=== PATIENT | female | born 1950 | race Caucasian/White ===

== ENCOUNTER 2017-01-09 09:21 | Emergency (ER) | payer MEDICARE, OTHER ==
[~2017-01-09] VITALS: Ht 152.4 cm; Wt 54.0 kg
[~2017-01-09 09:21] MED LIST: METO10TA96 PO; OMEP20CA16 PO
[2017-01-09 09:31] VITALS: Ht 152.4 cm; Wt 54.0 kg
--- NOTE | 2017-01-09 10:18 | ERD ---
ER Documentation Chief Complaint Date/Time DATE: 01/09/17 TIME: 10:16 Chief Complaint Complains of back pain and shoulder and neck HPI Patient is a 66 year old female here with daughter who presents to the ED for evaluation of her pleural effusion. She is currently going through chemotherapy for stage 4 uterine cancer. She states that her oncologist sent her here after seeing a pleural effusion on her CT scan. She complains of cough, SOB, and posterior left rib pain x 2 weeks. Denies chest pain or difficulty breathing. Denies fever or chills. Denies headache or dizziness. Denies leg pain or swelling. She states the oncologist wants to continue with treatment once her pleural effusion is evaluated. ROS All systems reviewed and are negative except as per history of present illness. Medications Home Meds Active Scripts Azithromycin* (Zithromax*) 250 Mg Tablet, 250 MG PO .ZPACK DIRECTED, #6 TAB TAKE 500 MG (2 TABS) THE FIRST DAY THEN 250 MG (1 TAB) DAYS 2-5 Prov:YOKO JAY PA-C 01/09/17 Metoclopramide Hcl* (Metoclopramide Hcl*) 10 Mg Tablet, 10 MG PO Q6H Y for NAUSEA AND OR VOMITING, #30 TAB Prov:WALKER MCKINNON MD 04/29/16 Omeprazole* (Omeprazole*) 20 Mg Capsule.dr, 20 MG PO DAILY, #90 CAP Prov:WALKER MCKINNON MD 04/29/16 Allergies Allergies: Coded Allergies: No Known Allergy (Unverified , 04/10/16) PMhx/Soc History of Surgery: Yes (Abdominal hysterectomy with appendectomy 2016) Anesthesia Reaction: No Hx Neurological Disorder: No Hx Respiratory Disorders: No Hx Cardiac Disorders: No Hx Psychiatric Problems: No Hx Miscellaneous Medical Probl: Yes (uterine cancer) Hx Alcohol Use: No Hx Substance Use: No Hx Tobacco Use: No Smoking Status: Never smoker Physical Exam Vitals Vital Signs Date Time Temp Pulse Resp B/P Pulse Ox O2 Delivery O2 Flow Rate FiO2 01/09/17 09:31 98.3 97 20 122/57 100 Physical Exam GENERAL: Well-developed, well-nourished female. Appears in no acute distress. LUNG: Clear to auscultation bilaterally. No rhonchi, wheezing, rales or coarse breath sounds. HEART: Regular rate and rhythm. No murmurs, rubs or gallops. BACK: No midline tenderness. Extremities: Equal pulses bilaterally. No peripheral clubbing, cyanosis or edema. No unilateral leg swelling. NEUROLOGIC: Alert and oriented. Moving all four extremities. 5/5 strength in all extremities. Normal speech. Steady gait. SKIN: Normal color. Warm and dry. No rashes or lesions. Capillary refill < 2 seconds Procedures/MDM ER COURSE: I kept the patient and/or family informed of laboratory and diagnostic imaging results throughout the emergency room course. EKG, MONITORS, & DIAGNOSTIC IMAGING: [place] [id number] Radiology Main Line: [phone] DIAGNOSTIC IMAGING REPORT Patient: VALENTINO CUNNINGHAM : 1950 Age: 66 Sex: F MR #: [id number] DOS: 01/09/17 1012 Ordering MD: YOKO JAY PA-C Location: [facility] Room/Bed: PROCEDURE: XR Chest. CLINICAL INDICATION: Shortness of breath/cough TECHNIQUE: Chest PA. COMPARISON: 04/10/2016 FINDINGS: Right-sided Port-A-Cath. The mediastinal structures are unremarkable. There is calcification of the thoracic aorta (consistent with atherosclerosis). The heart is normal in size and configuration. The pulmonary vascularity is normal. There is left basilar subsegmental atelectasis / patchy consolidation. There is a small left pleural effusion. The osseous structures are unremarkable. IMPRESSION: Calcification of the thoracic aorta (consistent with atherosclerosis) Left basilar subsegmental atelectasis / patchy consolidation Small left pleural effusion RPTAT: HGDB .Milan Quiñones MD, MD Date Time Electronically viewed and signed by .Milan Quiñones MD, MD on 01/09/2017 10:49 .B/ CC: YOKO JAY PA-C MEDICAL DECISION MAKING: This is a 66-year-old female with a history of uterine cancer who presents with cough, shortness of breath and evaluation of her pleural effusion. Vital signs were reviewed. Patient is afebrile. Patient is not hypoxic. Patient is not toxic or ill-appearing. Temperature 98.3 with an O2 sat of 100. Pulse 97. Patient has a small left pleural effusion. I have consulted with Dr. Olguin who has reviewed her imaging studies and agrees with plan. X-ray is read by radiologist shows calcification of the thoracic aorta consistent with atherosclerosis, left basilar subsegmental atelectasis/patchy consolidation, small left pleural effusion. Low suspicion for PE, pneumothorax, ACS, epiglottitis, obstruction, TB, pertussis, meningitis, sepsis. DISCHARGE: At this time, patient is stable for discharge and outpatient management with no new complaints during the ER course. Patient was sent home with Zithromax and to follow-up with oncologist with results.. Patient will be discharged home with instructions to recheck for new or worsening symptoms such as fever, nausea , weakness, LOC and to follow up with primary care in the next 1-2 days. Patient was advised to return to the ER for any new or worsening symptoms. Plan was discussed and patient and/or family understands and agrees. Home instructions were given. Departure Diagnosis: Primary Impression: Uterine cancer Malignant neoplasm of uterus location: unspecified site of uterus Qualified Code: C55 - Malignant neoplasm of uterus, unspecified site Additional Impressions: Pneumonia Pneumonia type: due to unspecified organism Laterality: left Lung location : unspecified part of lung Qualified Code: J18.9 - Pneumonia of left lung due to infectious organism, unspecified part of lung Pleural effusion Condition: Stable YKOO JAY PA-C Jan 09, 2017 10:18
--- NOTE | 2017-01-09 10:50 | RADRPT ---
PROCEDURE: XR Chest. CLINICAL INDICATION: Shortness of breath/cough TECHNIQUE: Chest PA. COMPARISON: 04/10/2016 FINDINGS: Right-sided Port-A-Cath. The mediastinal structures are unremarkable. There is calcification of the thoracic aorta (consiste nt with atherosclerosis). The heart is normal in size and configuration. The pulmonary vascularity is normal. There is left basilar subsegmental atelectasis / patchy consolidation. There is a smal l left pleural effusion. The osseous structures are unremarkable. IMPRESSION: Calcification of the thoracic aorta (consistent with atherosclerosis) Left basilar subsegmental atelectasis / patchy consolidation Small left pleural effusion RPTAT: HGDB .Milan Quiñones MD, Date Time Electronically viewed and signed by .Milan Quiñones MD, on 01/09/2017 10:49 .B/
[2017-01-09] MEDS ORDERED: AZIT250T94 PO (11:02)
== END 2017-01-09 11:35 | disposition home or self-care (01) ==
LOC: FTE 09:21
DX: C55 Malignant neoplasm of uterus, part unspecified (principal); J18.9 Pneumonia, unspecified organism; J90 Pleural effusion, not elsewhere classified
CPT/HCPCS: 71010

== ENCOUNTER 2017-01-29 11:25 | Inpatient (IN) | payer MEDICARE, OTHER ==
[~2017-01-29] VITALS: Ht 152.4 cm; Wt 56.0 kg
[~2017-01-29 11:25] MED LIST changes: +AZIT250T94 PO
[2017-01-29 11:29] VITALS: Ht 152.4 cm; Wt 56.0 kg
[2017-01-29] MEDS ORDERED: IPRATROPIUM (NEB) 0.5 MG/2.5 ML AMP INH STA (11:51)
[2017-01-29] MEDS ORDERED: ALBUTEROL 0.5% (NEB) 2.5 MG/0.5 ML AMP INH STA (11:51)
[2017-01-29] MEDS ORDERED: OMEP20CA16 PO (11:54)
--- NOTE | 2017-01-29 12:03 | ERA ---
ER Documentation Chief Complaint Date/Time DATE: 01/29/17 TIME: 11:56 Chief Complaint had pna and s/s not going away and has cwp now HPI This is a very pleasant 66-year-old female with a known history of stage IV uterine carcinoma diagnosed in March 2016. The patient underwent a total abdominal hysterectomy May 022015. Her last dose of chemotherapy was October 2016 and the patient's network security engineer oncologist is Dr. Scott Bonner and Pascale Ferreira. The patient surgical oncologist is Dr. Marte. They are currently awaiting further instructions for her treatment as they have an appointment with Dr. Marte on February 04. The patient indicates that roughly 1 month prior to arrival she was seen and evaluated in the hospital and diagnosed with a pleural effusion and pneumonia. She was placed on antibiotics for 5 days. She indicated she took all of her medications as instructed. The patient presents to the emergency department today stating that her dyspnea has significantly worsened over the past month. She has been experiencing shortness of breath for the past 4 days that exacerbated with walking. She has had no fevers no shaking or chills. She denies a productive cough. She has had generalized myalgias. She denies any swelling of her lower extremities. The patient denies any hemoptysis hematemesis or melanotic stools. She is no chest pain or pressure that radiates to the neck arm back or jaw she denies any abdominal pain. She is complaining of significant amount of pain over her left scapula for the past month which she states is a dull achy pain. ROS All systems reviewed and are negative except as per history of present illness. Medications Home Meds Reported Medications Omeprazole* (Omeprazole*) 20 Mg Capsule., 20 MG PO DAILY, #30 CAP 01/29/17 Discontinued Scripts Azithromycin* (Zithromax*) 250 Mg Tablet, 250 MG PO .CHRISTIANNE DIRECTED, #6 TAB TAKE 500 MG (2 TABS) THE FIRST DAY THEN 250 MG (1 TAB) DAYS 2-5 Prov:YOKO JAY PA-C 01/09/17 Metoclopramide Hcl* (Metoclopramide Hcl*) 10 Mg Tablet, 10 MG PO Q6H Y for NAUSEA AND OR VOMITING, #30 TAB Prov:WALKER MCKINNON MD 04/29/16 Omeprazole* (Omeprazole*) 20 Mg Capsule.dr, 20 MG PO DAILY, #90 CAP Prov:WALKER MCKINNON MD 04/29/16 Allergies Allergies: Coded Allergies: No Known Allergy (Unverified , 01/29/17) PMhx/Soc History of Surgery: Yes (Abdominal hysterectomy with appendectomy 2016) Anesthesia Reaction: No Hx Neurological Disorder: No Hx Respiratory Disorders: No Hx Cardiac Disorders: No Hx Psychiatric Problems: No Hx Miscellaneous Medical Probl: Yes (uterine cancer) Hx Alcohol Use: No Hx Substance Use: No Hx Tobacco Use: No Physical Exam Vitals Vital Signs Date Time Temp Pulse Resp B/P Pulse Ox O2 Delivery O2 Flow Rate FiO2 01/29/17 12:19 2.0 01/29/17 12:19 78 20 97 Nasal Cannula 2.0 01/29/17 11:29 97.9 109 22 118/59 100 Physical Exam Constitutional:Well-developed. Well-nourished. Appeared to be in mild respiratory distress HEENT:Normocephalic. Atraumatic.Pupils were equal round reactive to light. Moist mucous membranes.No tonsillar exudates. Neck: No nuchal rigidity. No lymphadenopathy. No posterior cervical spine tenderness or step-offs. Respiratory: Not using accessory muscles of respiration. No rhonchi or wheezing. Decreased breath sounds heard throughout the left upper and lower lung field. Cardiovascular: Regular rate regular rhythm.No murmurs. No rubs were appreciated.S1, S2 normal. Distal pulses are palpable 2+ bilaterally. GI: Abdomen was soft. Nontender. Non Distended. No pulsatile abdominal masses or bruits. No rebound. No guarding. Bowel sounds were present and normal. Muscle skeletal: Full range of motion of both the upper and lower extremities bilaterally.Normal muscle tone.No assymetrical calf tenderness or swelling. Skin: No petechia, no purpura. No lesions on the palms or the soles of the feet. No maculopapular rash. NEURO: Patient was alert, awake, orientated x3.No facial droop. Gait observed and normal with no ataxia.Speech had regular rate and rhythm. No focal neurological deficits. Result Diagram: 01/29/17 1210 01/29/17 1210 Results 24 hrs Laboratory Tests Test 01/29/17 12:10 Activated Partial Thromboplast Time 38.6Sec Alanine Aminotransferase (ALT/SGPT) 27IU/L Albumin 3.6g/dl Albumin/Globulin Ratio 0.83 Alkaline Phosphatase 161IU/L Anion Gap 18 Aspartate Amino Transf (AST/SGOT) 17IU/L B-Type Natriuretic Peptide 240PG/ML Basophils # 0.010^3/ul Basophils % 0.3% Blood Urea Nitrogen 13mg/dl Calcium Level 9.3mg/dl Carbon Dioxide Level 25mmol/L Chloride Level 105mmol/L Creatine Kinase 29IU/L Creatine Kinase Index 0.8 Creatinine 0.66mg/dl Creatinine Kinase MB (Mass) < 0.22ng/ml Direct Bilirubin 0.00mg/dl Eosinophils # 0.110^3/ul Eosinophils % 0.8% Globulin 4.30g/dl Glucose Level 91mg/dl Hematocrit 31.5% Hemoglobin 10.5g/dl INR International Normalized Ratio 1.05 Indirect Bilirubin 0.2mg/dl Lactic Acid Level 0.7mmol/L Lymphocytes # 1.510^3/ul Lymphocytes % 24.3% Mean Corpuscular Hemoglobin 27.9pg Mean Corpuscular Hemoglobin Concent 33.3g/dl Mean Corpuscular Volume 83.6fl Mean Platelet Volume 9.6fl Monocytes # 0.410^3/ul Monocytes % 5.8% Neutrophils # 4.410^3/ul Neutrophils % 68.5% Nucleated Red Blood Cells # 0.010^3/ul Nucleated Red Blood Cells % 0.0/100WBC Platelet Count 04026^3/UL Potassium Level 4.1mmol/L Prothrombin Time 13.7Sec Prothrombin Time Ratio 1.1 Red Blood Count 3.7710^6/ul Red Cell Distribution Width 14.1% Sodium Level 144mmol/L Total Bilirubin 0.2mg/dl Total Protein 7.9g/dl Troponin I < 0.012ng/ml White Blood Count 6.410^3/ul Current Medications Medications (Trade) Dose Ordered Sig/Michael Route PRN Reason Start Time Stop Time Status Last Admin Dose Admin Albuterol (Proventil 0.5% (Neb)) 10 mg ONCE STAT INH 01/29/17 11:51 01/29/17 11:56 DC 01/29/17 12:18 Ipratropium [place] 1 mg 1 mg ONCE STAT INH 01/29/17 11:51 01/29/17 11:56 DC 01/29/17 12:18 Vancomycin HCl 250 ml @ 125 mls/hr ONCE ONCE IVPB 01/29/17 13:30 01/29/17 15:29 Piperacillin Sod/ Tazobactam Sod (Zosyn 3.375gm/ 100 ml (Pmx)) 100 ml @ 200 mls/hr ONCE STAT IVPB 01/29/17 13:10 01/29/17 13:39 Procedures/MDM The patient presented to the emergency department with shortness of breath. My differential diagnosis included but was not limited to upper airway obstruction , CHF, pulmonary embolism, cardiac ischemia, pneumonia, pneumothorax, anemia, drug overdose, pulmonary edema, COPD or asthma. Decreased breath sounds were heard throughout the left upper and lower lung field and the patient immediately was placed on monitoring engineer continuous pulse oximetry and the patient's right-sided Port-A-Cath was accessed by nursing staff. The patient was given nebulizer treatments of albuterol and Atrovent. I obtained 2 sets of blood cultures and urine culture as again I was concerned with the possibility of a pleural effusion from physical exam findings. After reviewing the chest radiograph at bedside the patient did have a large complete opacification of the left chest with concerning for pleural effusion. Given that I cannot rule out an exudate or transudate I did feel is necessary to administer antibiotics given her history of immunocompromisation. The patient received IV vancomycin and IV Zosyn. The patient was not complaining of any respiratory distress when she was placed on 2 L of nasal cannula satting at 100% 12 Lead EKG tracing ordered and reviewed by myself showed to rule out atypical myocardial infarction: Normal sinus rhythm of 89 bpm and no arrhythmia. LA interval normal. QRS duration normal. No ST segment elevation No ST segment depression. No changes consistent with acute ischemia. I did feel is necessary to obtain a CT scan of the patient's chest to rule out metastasis or a pulmonary embolism. The patient will be admitted in serious condition to the telemetry service with an anticipated stay of greater than 2 midnights to the hospitalist Dr. Quiroz. Departure Diagnosis: Primary Impression: Pleural effusion Condition: Serious EPIFANIO BENSON Jan 29, 2017 12:03
[2017-01-29 12:26] LABS: ADD SCAN DIFF NO
[2017-01-29 12:40] LABS: BASOPHILS % 0.3 % (0.0-2.0); EOSINOPHILS # 0.1 10^3/ul (0.0-0.5); EOSINOPHILS % 0.8 % (0.0-7.0); HEMATOCRIT 31.5 % (37.0-47.0); HEMOGLOBIN 10.5 g/dl (12.0-16.0); LYMPHOCYTES # 1.5 10^3/ul (0.8-2.9); LYMPHOCYTES % 24.3 % (15.0-51.0); MEAN CORPUSCULAR HEMOGLOBIN 27.9 pg (29.0-33.0); MEAN CORPUSCULAR HGB CONC 33.3 g/dl (32.0-37.0); MEAN CORPUSCULAR VOLUME 83.6 fl (82.0-101.0); MEAN PLATELET VOLUME 9.6 fl (7.4-10.4); MONOCYTE # 0.4 10^3/ul (0.3-0.9); MONOCYTES % 5.8 % (0.0-11.0); NEUTROPHIL # 4.4 10^3/ul (1.6-7.5); NEUTROPHILS % 68.5 % (39.0-77.0); PLATELET COUNT 288 10^3/UL (140-415); RED BLOOD COUNT 3.77 10^6/ul (4.20-5.40); RED CELL DISTRIBUTION WIDTH 14.1 % (11.5-14.5); WHITE BLOOD COUNT 6.4 10^3/ul (4.8-10.8)
[2017-01-29 12:42] LABS: ALBUMIN 3.6 g/dl (3.3-4.9); CHLORIDE 105 mmol/L (97-110); POTASSIUM 4.1 mmol/L (3.5-5.1); SODIUM 144 mmol/L (135-144)
[2017-01-29 12:43] LABS: INR 1.05; PARTIAL THROMBOPLASTIN TIME 38.6 Sec (25.0-35.0); PROTIME 13.7 Sec (12.2-14.2); PT RATIO 1.1
[2017-01-29 12:44] LABS: CREATININE 0.66 mg/dl (0.44-1.00)
[2017-01-29 12:45] LABS: ALANINE AMINOTRANSFERASE 27 IU/L (13-69); ALBUMIN/GLOBULIN RATIO 0.83; ALKALINE PHOSPHATASE 161 IU/L (42-121); ASPARTATE AMINO TRANSFERASE 17 IU/L (15-46); BILIRUBIN,INDIRECT 0.2 mg/dl (0-1.1); BILIRUBIN,TOTAL 0.2 mg/dl (0.2-1.3); BLOOD UREA NITROGEN 13 mg/dl (7-20); CALCIUM 9.3 mg/dl (8.4-10.2); CARBON DIOXIDE 25 mmol/L (21-31); CREATINE KINASE 29 IU/L (23-200); GLUCOSE 91 mg/dl (70-220); TOTAL PROTEIN 7.9 g/dl (6.1-8.1)
[2017-01-29 12:46] LABS: ANION GAP 18 (8-16)
[2017-01-29 12:56] LABS: B-TYPE NATRIURETIC PEPTIDE 240 PG/ML (0-125)
[2017-01-29 13:01] LABS: CK-MB < 0.22 ng/ml (0.0-2.4); TROPONIN-I < 0.012 ng/ml (0.00-0.12)
[2017-01-29] MEDS ORDERED: PIPER-TAZO 3.375 GM IV (PMX) 100 ML IVPB STA (13:10)
--- NOTE | 2017-01-29 13:20 | RADRPT ---
PROCEDURE: Chest Radiograph. CLINICAL INDICATION: Shortness of breath TECHNIQUE: Single frontal chest radiograph. COMPARISON: Chest radiograph 01/09/2017 FINDINGS: A right chest wall port infusion catheter remains in place. Heart size is poorly evaluated. There is near complete whiteout of the left hemithorax, new compared to 01/09/2017 There is apparent medi astinal shift to the right suggesting this is a large pleural effusion rather than collapse. Right l denisse is clear. The bones are intact IMPRESSION: 1. Near complete whiteout of the left hemithorax with mediastinal shift to the right suggesting lar ge pleural effusion. 2. Right chest wall port infusion catheter. RPTAT: KK .Sav Baires MD, MD Date Time Electronically viewed and signed by .Sav Baires MD, on 01/29/2017 13:20 .B/
[2017-01-29] MEDS ORDERED: ONDANSETRON 4 MG INJ IV PRN ×2 (13:30→15:30)
[2017-01-29] MEDS ORDERED: ACETAMINOPHEN 325 MG TAB PO PRN (13:30)
[2017-01-29] MEDS ORDERED: VANCOMYCIN 1 GM (PMX) 250 ML IVPB ONE (13:30)
[2017-01-29] MEDS ORDERED: SOD CHLORIDE 0.9% 100 ML ONE (14:30)
[2017-01-29] MEDS ORDERED: IODIXANOL LOCM 100 ML BTL ONE (14:30)
[2017-01-29] MEDS ORDERED: IODIXANOL LOCM 50 ML BTL ONE (14:30)
[2017-01-29] MEDS ORDERED: DOCUSATE SODIUM 100 MG CAP PO PRN (15:30)
[2017-01-29] MEDS ORDERED: NACL 0.9% 3 ML SYG IV SCH (15:30)
[2017-01-29] MEDS ORDERED: morphine 2 MG INJ IV PRN (15:30)
[2017-01-29] MEDS ORDERED: ZOLPIDEM 5 MG TAB PO PRN (15:30)
--- NOTE | 2017-01-29 15:45 | RADRPT ---
PROCEDURE: CT ANGIOGRAPHY CHEST CLINICAL INDICATION: Chest pain TECHNIQUE: Volumetrically acquired images of the thorax obtained with intravenous contrast were re formatted in the axial, coronal, and sagittal planes. CTDI = 6.6 mGy; DLP = 235 mGy-cm. 115 cc of V isipaque was administered. 3D MIP multiplanar reconstructions were performed and evaluated on the w orkstation. One or more of the following dose reduction technique were used: Automatic exposure cont rol, adjustment of the mA and/or kV according to patient size, and use of iterative reconstruction t echnique. COMPARISON: 01/29/2017 chest x-ray. FINDINGS: LOWER NECK AND CHEST WALL: There is a right chest wall port catheter with the tip in the superior ve na cava. AIRWAYS: The trachea and large airways are normal. LUNGS: Near entire atelectasis of the left lung. Only portions of the left lung apex is aerated. PLEURA: Large loculated effusion on the left with associated atelectasis of nearly in the entire lef t lung. LYMPH NODES: No significant axillary, hilar, or mediastinal lymphadenopathy by CT size criteria. CARDIAC: The heart size is normal. No pericardial effusion. VASCULAR: Technically adequate opacification of the pulmonary arteries; no fill defects are seen. T he aorta and main pulmonary artery are normal in caliber. Aortic and coronary atherosclerotic calci fications are present. OSSEOUS: No suspicious osseous lesions. Scattered degenerative changes of the thoracic spine is vis ualized. Limited evaluation of the upper abdomen demonstrates a prior left nephrectomy. IMPRESSION: 1. No pulmonary embolism. 2. Large loculated left pleural effusion with associated atelectasis causing mediastinal shift to th e right. There is an near total atelectasis of the entire left lung with minimal amount of aerated lung seen at the left lung apex. 3. Status post left nephrectomy. RPTAT:PP .Wayne Alejandre MD, Date Time Electronically viewed and signed by .Wayne Alejandre MD, on 01/29/2017 15:40 .V/
--- NOTE | 2017-01-29 15:57 | HP ---
DATE OF ADMISSION: 01/29/2017 ADDENDUM PHYSICAL EXAMINATION: CHEST: Clear to auscultation on the right. Decreased breath sounds on the left. ABDOMEN: Nondistended, nontender, soft. EXTREMITIES: No clubbing, cyanosis, or edema. LABORATORY DATA: White count is 6.4, hemoglobin is 10.5, platelets are 288. Chemistry was within n ormal limits. DIAGNOSTIC DATA: Chest x-ray shows near complete whiteout of the left hemithorax with mediastinal s hift to the right suggesting a large pleural effusion, right chest wall port infusion catheter. ASSESSMENT AND PLAN: 1. Acute respiratory distress secondary to left hemithorax opacification, likely secondary to malig nant effusion. The patient does have a history of metastatic uterine cancer. We will obtain a thor acentesis, send fluid for analysis. We will get a pulmonology consultation. 2. History of stage IV cervical cancer with known peritoneal carcinomatosis. We will consult Dr. Clinton marcus. 3. Normocytic anemia, likely anemia of chronic disease from underlying malignancy. 4. Prophylaxis: Sequential compression devices. Dictated By: CHRISTINE HYDE MD BS/NTS Conf#: [id number] DID#: [id number]
[2017-01-29 16:55] VITALS: BP 116/56; PULSE 105; RESP 18
[2017-01-29] MEDS: ACETAMINOPHEN 325 MG TAB PO PRN (17:36)
[2017-01-29 20:05] VITALS: PULSE 95
[2017-01-29 20:33] VITALS: BP 107/62; RESP 16
[2017-01-30] VITALS (12 sets, daily range): BP systolic 105–126; BP diastolic 55–72; PULSE 83–92; RESP 16–20
[2017-01-30] MEDS: ACETAMINOPHEN 325 MG TAB PO PRN ×3 (04:22→19:55)
[2017-01-30 06:40] LABS: ADD SCAN DIFF NO
[2017-01-30 06:51] LABS: BASOPHILS % 0.2 % (0.0-2.0); EOSINOPHILS # 0.1 10^3/ul (0.0-0.5); EOSINOPHILS % 1.2 % (0.0-7.0); HEMATOCRIT 29.7 % (37.0-47.0); HEMOGLOBIN 9.9 g/dl (12.0-16.0); LYMPHOCYTES # 1.2 10^3/ul (0.8-2.9); LYMPHOCYTES % 20.1 % (15.0-51.0); MEAN CORPUSCULAR HEMOGLOBIN 28.1 pg (29.0-33.0); MEAN CORPUSCULAR HGB CONC 33.3 g/dl (32.0-37.0); MEAN CORPUSCULAR VOLUME 84.4 fl (82.0-101.0); MEAN PLATELET VOLUME 9.6 fl (7.4-10.4); MONOCYTE # 0.4 10^3/ul (0.3-0.9); MONOCYTES % 6.5 % (0.0-11.0); NEUTROPHIL # 4.1 10^3/ul (1.6-7.5); NEUTROPHILS % 71.8 % (39.0-77.0); PLATELET COUNT 269 10^3/UL (140-415); RED BLOOD COUNT 3.52 10^6/ul (4.20-5.40); RED CELL DISTRIBUTION WIDTH 14.1 % (11.5-14.5); WHITE BLOOD COUNT 5.7 10^3/ul (4.8-10.8)
[2017-01-30 07:06] LABS: POTASSIUM 4.3 mmol/L (3.5-5.1)
--- NOTE | 2017-01-30 07:08 | HP ---
DATE OF ADMISSION: 01/29/2017 CHIEF COMPLAINT: Shortness of breath. HOSPITAL COURSE: The patient is a 66-year-old female with a history of stage IV cervical cancer sta tus post total abdominal hysterectomy as well as bilateral salpingo-oophorectomy. Patient is also s tatus post chemotherapy with Dr. Bonner. The patient reportedly had a CT abdomen approximately a mo nth and a half ago that showed stable findings, but did show a mild pleural effusion and since then, patient has been having progressively worsening shortness of breath. She presents to the ER today where she had a chest x-ray that showed near complete opacification of the left hemithorax with medi astinal shift to the right, suggesting large pleural effusion. Patient has no other complaints at t his time. PAST MEDICAL HISTORY: As per HPI. PAST SURGICAL HISTORY: As per HPI with a total abdominal hysterectomy and bilateral salpingo-oophor ectomy. HOME MEDICATIONS: Omeprazole. ALLERGIES: NO KNOWN DRUG ALLERGIES. FAMILY HISTORY: Extensive history of cancer in the family with mother had likely a cancer, also sisters with cancers. SOCIAL HISTORY: Denies alcohol, tobacco or drug use. REVIEW OF SYSTEMS: A 12-point review of systems is negative except for that listed in HPI and heada leland. PHYSICAL EXAMINATION VITAL SIGNS: Temperature is 97.9, pulse 109, respiration is 20, blood pressure 112/74, saturation 1 00% on 2 liters. GENERAL: No acute distress. Alert and oriented. HEENT: Normocephalic, atraumatic. DICTATION ENDS HERE..... Dictated By: CHRISTINE LUNA/KOURTNEY Conf#: [id number] DID#: [id number]
[2017-01-30 07:09] LABS: CREATININE 0.58 mg/dl (0.44-1.00)
[2017-01-30 07:10] LABS: CALCIUM 8.7 mg/dl (8.4-10.2); PHOSPHORUS 3.8 mg/dl (2.5-4.9)
--- NOTE | 2017-01-30 13:35 | PN ---
DATE: 01/30/2017 TYPE OF CONSULTATION: Pulmonary. REASON FOR CONSULTATION: Shortness of breath. Thank you, Dr. Freed, for this consultation: HISTORY OF PRESENT ILLNESS: This is an unfortunate 66-year-old lady with a history of stage IV cervi rafa cancer with peritoneal carcinomatosis, who presented with significant shortness of breath, ortho pnea and PND and was found to have complete opacification of the left hemithorax, consistent with pl eural effusion. Denies any fever or chills. No chest pain or palpitations. No orthopnea or PND. She has a history of cervical cancer, also bilateral salpingo-oophorectomy, status post chemotherapy . ALLERGIES: NO KNOWN ALLERGIES. SOCIAL HISTORY: Nonsmoker, no alcohol, no history of drug use. FAMILY HISTORY: Noncontributory. REVIEW OF SYSTEMS: A 12-point review of systems was negative, other than that mentioned above. PHYSICAL EXAMINATION: GENERAL: Well-nourished, well-developed lady, comfortable at rest, in no acute distress. VITAL SIGNS: Currently afebrile, pulse is 90, blood pressure 108/55, O2 saturation 96% on 3 L nasal cannula. NECK: Supple. No JVD or lymphadenopathy. CARDIAC EXAM: S1, S2. No added sounds or murmurs. CHEST: Diminished air entry, left lung. ABDOMEN: Soft, nontender. No guarding or rebound. EXTREMITIES: No cyanosis, clubbing, edema. NEUROLOGIC: Grossly intact. No focal deficits. LABORATORY: White count 5.7, hemoglobin 9.9, platelets of 269, BUN 9, creatinine 0.58. INR 1.05. IMPRESSION AND PLAN: 1. Cervical carcinoma stage IV. 2. Left pleural effusion, likely malignant in origin. 3. Hypoxemia secondary to above. Patient will require: 1. Thoracentesis. 2. Pleural fluid studies. 3. Likely PleurX catheter, given probable malignant origin. Dictated By: JEROME MOODY/KOURTNEY Conf#: [id number] DID#: [id number]
--- NOTE | 2017-01-30 15:10 | PN ---
Date/Time of Note Date/Time of Note DATE: 01/30/17 TIME: 15:05 Assessment/Plan VTE Prophylaxis VTE Prophylaxis Intervention: SCD's Lines/Catheters IV [facility] A CATH Urinary Cath still in place: No Assessment/Plan Chief Complaint/Hosp Course 1. Acute respiratory distress likely 2/2 malignant effusion -US Thoracentesis, fluid analysis - Pulmonology consultation appreciated 2. History of stage IV cervical cancer with known peritoneal carcinomatosis -Onc consult 3. Normocytic anemia, likely anemia of chronic disease from underlying malignancy. PPx-Sequential compression devices Problems: Subjective 24 Hr Interval Summary Respiratory: shortness of breath Exam/Review of Systems Vital Signs Vitals Vital Signs Date Time Temp Pulse Resp B/P Pulse Ox O2 Delivery O2 Flow Rate FiO2 01/30/17 13:05 92 01/30/17 11:50 98.8 20 108/55 95 01/30/17 07:33 Nasal Cannula 3.0 Exam Constitutional: alert, oriented Respiratory: diminished breath sounds (on the L ) Cardiovascular: regular rate and rhythm Gastrointestinal: soft, No distended Musculoskeletal: nl extremities to inspection Results Result Diagram: 01/30/17 0547 01/30/17 0547 Results 24 hrs Laboratory Tests Test 01/29/17 15:50 01/30/17 05:47 Lactic Acid Level 1.3 Anion Gap 14 Basophils # 0.0 Basophils % 0.2 Blood Urea Nitrogen 9 Calcium Level 8.7 Carbon Dioxide Level 27 Chloride Level 104 Creatinine 0.58 Eosinophils # 0.1 Eosinophils % 1.2 Glucose Level 95 Hematocrit 29.7 L Hemoglobin 9.9 L Lymphocytes # 1.2 Lymphocytes % 20.1 Magnesium Level 2.0 Mean Corpuscular Hemoglobin 28.1 L Mean Corpuscular Hemoglobin Concent 33.3 Mean Corpuscular Volume 84.4 Mean Platelet Volume 9.6 Monocytes # 0.4 Monocytes % 6.5 Neutrophils # 4.1 Neutrophils % 71.8 Nucleated Red Blood Cells # 0.0 Nucleated Red Blood Cells % 0.0 Phosphorus Level 3.8 Platelet Count 269 Potassium Level 4.3 Red Blood Count 3.52 L Red Cell Distribution Width 14.1 Sodium Level 141 White Blood Count 5.7 Medications Medications Current Medications Ondansetron HCl (Zofran Inj) 4 mg Q6H PRN IV NAUSEA AND/OR VOMITING; Start 01/29 at 15:30 Acetaminophen (Tylenol Tab) 650 mg Q6H PRN PO PAIN LEVEL 1-3 OR FEVER Last administered on 01/30/17 13:48; Admin Dose 650 MG; Start 01/29/17 at 15:30 Acetaminophen/ Hydrocodone Bitart ([place] (5/325)) 1 tab Q6H PRN PO MODERATE PAIN LEVEL 4-6; Start 01/29/17 at 15:30 Morphine Sulfate (morphine) 2 mg Q4H PRN IV SEVERE PAIN LEVEL 7-10; Start at 15:30 Docusate Sodium (Colace) 100 mg Q12H PRN PO CONSTIPATION; Start 01/29/17 at 15: 30 Zolpidem Tartrate (Ambien) 5 mg QHS PRN PO SLEEP; Start 01/29/17 at 15:30 CHRISTINE HYDE Jan 30, 2017 15:10
--- NOTE | 2017-01-30 16:06 | CONS ---
Date/Time of Note Date/Time of Note DATE: 01/30/17 TIME: 16:05 Assessment/Plan Assessment/Plan Chief Complaint/Hosp Course The patient is a 66 year old female who is a patient of Dr. Vin Marte and Dr. 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 She has not seen Dr. Bonner for 3 months and was lost to follow-up. - Agree with thoracentesis and likely pleurX catheter placement given probable malignant origin. - Patient will need to follow-up with Dr. Bonner as an outpatient for restaging and treatment. Can obtain repeat CT abdomen/pelvis once stabilized from respiratory standpoint. - Given extensive family history of ovarian and uterine cancer in her mother at age 39, sister at age 34, niece who apparently tested positive for a genetic mutation, would recommend genetic testing Problems: Consultation Date/Type/Reason Admit Date/Time Jan 29, 2017 at 13:19 Hx of Present Illness The patient is a 66 year old female who is a patient of Dr. Vin Marte and Dr. 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 She has not seen Dr. Bonner for 3 months and was lost to follow-up. She was admitted for shortness of breath for the past week and found to have a large loculated left pleural effusion with associated atelectasis causing mediastinal shift to the right. There is an near total atelectasis of the entire left lung with minimal amount of aerated lung seen at the left lung apex. She is planned to have a thoracentesis and likely pleurX catheter placement given probable malignant origin. Respiratory: shortness of breath Past Medical History Per HPI Past Surgical History GISSEL/BSO Family History Significant Family History: cancer (extensive family history of ovarian and uterine cancer in her mother at age 39, sister at age 34, niece who apparently tested positive for a genetic mutation) Social History Smoking Status: Never smoker Exam/Review of Systems Vital Signs Vitals Vital Signs Date Time Temp Pulse Resp B/P Pulse Ox O2 Delivery O2 Flow Rate FiO2 01/30/17 15:56 98.6 90 18 106/59 99 01/30/17 07:33 Nasal Cannula 3.0 Exam Constitutional: alert, distress (accessory muscle use), oriented Head: normocephalic Eyes: nl conjunctiva Neck: supple Respiratory: diminished breath sounds (diminished breath sounds on left) Cardiovascular: regular rate and rhythm Gastrointestinal: non-tender, soft Musculoskeletal: nl extremities to inspection Neurological: [employer] II-XII intact Results Result Diagram: 01/30/17 0547 01/30/17 0547 Results 24 hrs Laboratory Tests Test 01/30/17 05:47 Anion Gap 14 Basophils # 0.0 Basophils % 0.2 Blood Urea Nitrogen 9 Calcium Level 8.7 Carbon Dioxide Level 27 Chloride Level 104 Creatinine 0.58 Eosinophils # 0.1 Eosinophils % 1.2 Glucose Level 95 Hematocrit 29.7 L Hemoglobin 9.9 L Lymphocytes # 1.2 Lymphocytes % 20.1 Magnesium Level 2.0 Mean Corpuscular Hemoglobin 28.1 L Mean Corpuscular Hemoglobin Concent 33.3 Mean Corpuscular Volume 84.4 Mean Platelet Volume 9.6 Monocytes # 0.4 Monocytes % 6.5 Neutrophils # 4.1 Neutrophils % 71.8 Nucleated Red Blood Cells # 0.0 Nucleated Red Blood Cells % 0.0 Phosphorus Level 3.8 Platelet Count 269 Potassium Level 4.3 Red Blood Count 3.52 L Red Cell Distribution Width 14.1 Sodium Level 141 White Blood Count 5.7 Medications Medications Current Medications Ondansetron HCl (Zofran Inj) 4 mg Q6H PRN IV NAUSEA AND/OR VOMITING; Start 01/29 at 15:30 Acetaminophen (Tylenol Tab) 650 mg Q6H PRN PO PAIN LEVEL 1-3 OR FEVER Last administered on 01/30/17t 13:48; Admin Dose 650 MG; Start 01/29/17 at 15:30 Acetaminophen/ Hydrocodone Bitart ([place] (5/325)) 1 tab Q6H PRN PO MODERATE PAIN LEVEL 4-6; Start 01/29/17 at 15:30 Morphine Sulfate (morphine) 2 mg Q4H PRN IV SEVERE PAIN LEVEL 7-10; Start at 15:30 Docusate Sodium (Colace) 100 mg Q12H PRN PO CONSTIPATION; Start 01/29/17 at 15: 30 Zolpidem Tartrate (Ambien) 5 mg QHS PRN PO SLEEP; Start 01/29/17 at 15:30 TONAVNEET MD Jan 30, 2017 16:06
[2017-01-31] VITALS (12 sets, daily range): BP systolic 106–115; BP diastolic 52–57; PULSE 79–112; RESP 16–19
[2017-01-31] MEDS: ACETAMINOPHEN 325 MG TAB PO PRN (04:15)
[2017-01-31] MEDS ORDERED: LIDOCAINE 1% (MPF) 5 ML VIAL ONE (10:46)
--- NOTE | 2017-01-31 11:13 | PN ---
DATE: 01/31/2017 SUBJECTIVE: Patient Stephen is stable this morning, having repeat procedure. OBJECTIVE: VITAL SIGNS: Temperature 98, pulse 90, blood pressure 108/56, O2 saturation 98% on 2 L nasal cannul a. NECK: Supple, no JVD or lymphadenopathy. CARDIAC: S1, S2, no added sounds or murmurs. CHEST: Diminished air entry bilaterally. ABDOMEN: Soft, nontender. No guarding or rebound. EXTREMITIES: No cyanosis, clubbing, edema. NEUROLOGIC: Grossly intact. No focal deficits. LABORATORY DATA: Pending at time of this dictation. IMPRESSION AND PLAN: 1. Stage IV uterine cancer status post total abdominal hysterectomy and bilateral salpingo-oophorec nghia with new onset left pleural effusion, status post thoracentesis. We will await pleural fluid s tudies. If there is evidence of reaccumulation of pleural fluid, patient will require PleurX cathet er placement. 2. Continue hematology/oncology recommendations. 3. Deep venous thrombosis and gastrointestinal prophylaxis. Dictated By: JEROME MOODY/KOURTNEY Conf#: [id number] DID#: [id number]
--- NOTE | 2017-01-31 12:29 | RADRPT ---
PROCEDURE: XR Chest. CLINICAL INDICATION: Post thoracentesis. TECHNIQUE: An AP view of the chest was obtained COMPARISON: Chest x-ray dated 01/29/2017 FINDINGS: There is a right chest Port-A-Cath with tip in the mid SVC. There has been interval left-sided thoracentesis with improvement in degree of left pleural fluid, w hich remains large. No pneumothorax is seen. The cardiomediastinal silhouette is partially obscured . Demonstrate senescent changes. IMPRESSION: 1. Interval left thoracentesis with improvement in degree of left pleural effusion, which remains l arge. No pneumothorax is seen. 2. Right chest Port-A-Cath with tip in the mid SVC. RPTAT: HH .Rayna Nicholson MD, Date Time Electronically viewed and signed by .Rayna Nicholson MD, on 01/31/2017 12:28 .G/
[2017-01-31 12:54] LABS: FLUID TYPE THORACENTESIS FLUID
[2017-01-31 12:59] LABS: FLUID TOTAL PROTEIN 5.1 g/dl
[2017-01-31 13:11] LABS: FLUID APPEARANCE CLOUDY; FLUID TYPE PLEURAL; FLUID WBC'S 140 /cmm
[2017-01-31 14:26] LABS: FLUID EOSINOPHIL 4 %; FLUID LYMPHOCYTES 71 %; FLUID MONOCYTES 21 %; FLUID NEUTROPHILS 4 %
--- NOTE | 2017-01-31 14:35 | RADRPT ---
PROCEDURE: US guided left thoracentesis. CLINICAL INDICATION: Shortness of breath. Left pleural effusion. TECHNIQUE: Prior to the procedure, informed consent was obtained. The risks, benefits, and alternatives were e xplained to the patient or the patient's family, including but not limited to bleeding, infection, p ain, visceral or vascular damage, shock, pneumothorax, chest tube placement, air embolism, and . The patient or the patient's family understood the risks and the alternatives and wished to proce ed with the study. Informed written consent was obtained. A procedural pause was performed. The patient's name, date of , and procedure to be performed were verified. Ultrasound of the left hemithorax was performed in the axial and sagittal planes. A left pleural eff usion is noted. Utilizing ultrasound guidance, optimal location for entry to the pleural cavity was ascertained. The overlying skin was prepped and draped in the usual sterile fashion. Approximately 10 ml of 1% Xylocaine was injected locally for pain control. Using ultrasound guidance, a 5-Uzbek Yueh catheter was introduced into the left pleural space without difficulty. Fluid was aspirated. COMPARISON: None. FINDINGS: Initial ultrasound demonstrates fluid in the left pleural space. Approximately 1.0 liters of serous fluid was aspirated and sent to the laboratory. IMPRESSION: 1. Satisfactory ultrasound-guided left thoracentesis. RPTAT: QQ .Dominic Wilson MD, Date Time Electronically viewed and signed by .Dominic Wilson MD, on 01/31/2017 14:34 .R/
--- NOTE | 2017-01-31 14:45 | PDOCDIS ---
Discharge Instructions CONDITION Patient Condition: Good HOME CARE INSTRUCTIONS: Diet Instructions: Regular ACTIVITY: Activity Restrictions: No Restrictions FOLLOW UP/APPOINTMENTS Appointments F/U WITH YOUR ONCOLOGIST IN 1-2 WEEKS CHRISTINE HYDE Jan 31, 2017 14:45
[2017-01-31] MEDS ORDERED: BARIUM SULF 2% 450 ML BTL (BERRY SMOOTHIE) PO ONE (15:30)
--- NOTE | 2017-01-31 16:33 | PN ---
Date/Time of Note Date/Time of Note DATE: 01/31/17 TIME: 16:32 Assessment/Plan VTE Prophylaxis VTE Prophylaxis Intervention: SCD's Lines/Catheters IV [facility]from [facility] SANDIP CAHTH Urinary Cath still in place: No Assessment/Plan Chief Complaint/Hosp Course 1. Acute respiratory distress likely 2/2 malignant effusion -s/p US Thoracentesis, fluid analysis - Pulmonology consultation appreciated -F/U on CT Chest 2. History of stage IV cervical cancer with known peritoneal carcinomatosis -Onc consult appreciated 3. Normocytic anemia, likely anemia of chronic disease from underlying malignancy PPx-Sequential compression devices Problems: Subjective 24 Hr Interval Summary Constitutional: no complaints Exam/Review of Systems Vital Signs Vitals Vital Signs Date Time Temp Pulse Resp B/P Pulse Ox O2 Delivery O2 Flow Rate FiO2 01/31/17 16:17 98.8 92 17 114/55 92 01/31/17 13:45 3.0 01/31/17 07:59 Nasal Cannula Intake and Output 01/30/17 01/30/17 01/31/17 15:00 23:00 07:00 Intake Total 400 ml 700 ml Balance 400 ml 700 ml Exam Constitutional: alert, oriented Respiratory: clear to auscultation Cardiovascular: regular rate and rhythm Gastrointestinal: soft, No distended Musculoskeletal: nl extremities to inspection Results Result Diagram: 01/30/17 0547 01/30/17 0547 Results 24 hrs Laboratory Tests Test 01/31/17 10:40 Body Fluid Appearance CLOUDY Body Fluid Color YELLOW Body Fluid Eosinophils % 4 Body Fluid Lactate Dehydrogenase Body Fluid Lymphocytes (%) 71 Body Fluid Monocytes % 21 Body Fluid Neutrophils % 4 Body Fluid RBC Body Fluid Total Protein 5.1 Body Fluid Type THORACENTESIS FLUID Body Fluid Volume 1000.0 Body Fluid WBC 140 Medications Medications Current Medications Ondansetron HCl (Zofran Inj) 4 mg Q6H PRN IV NAUSEA AND/OR VOMITING; Start 01/29 at 15:30 Acetaminophen (Tylenol Tab) 650 mg Q6H PRN PO PAIN LEVEL 1-3 OR FEVER Last administered on 01/31/17t 04:15; Admin Dose 650 MG; Start 01/29/17 at 15:30 Acetaminophen/ Hydrocodone Bitart ([place] (5/325)) 1 tab Q6H PRN PO MODERATE PAIN LEVEL 4-6; Start 01/29/17 at 15:30 Morphine Sulfate (morphine) 2 mg Q4H PRN IV SEVERE PAIN LEVEL 7-10; Start at 15:30 Docusate Sodium (Colace) 100 mg Q12H PRN PO CONSTIPATION; Start 01/29/17 at 15: 30 Zolpidem Tartrate (Ambien) 5 mg QHS PRN PO SLEEP; Start 01/29/17 at 15:30 CHRISTINE HYDE Jan 31, 2017 16:33
--- NOTE | 2017-01-31 17:01 | CONS ---
Date/Time of Note Date/Time of Note DATE: 01/31/17 TIME: 16:58 Assessment/Plan Assessment/Plan Chief Complaint/Hosp Course The patient is a 66 year old female who is a patient of Dr. Vin Marte and Dr. 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 She has not seen Dr. Bonner for 3 months and was lost to follow-up. - s/p thoracentesis today with 1L fluid removed, f/u pleural studies, may need pleurX catheter placement given probable malignant origin if reaccumulates - Will obtain repeat CT abd/pelvis for staging now that respiratory status improved - If confirmed malignant effusion and scans suggest progression, may give her chemo with carbo/doxil in house or as n outpatient. - Patient will need to follow-up with Dr. Bonner as an outpatient - Given extensive family history of ovarian and uterine cancer in her mother at age 39, sister at age 34, niece who apparently tested positive for a genetic mutation, would recommend genetic testing Problems: Consultation Date/Type/Reason Admit Date/Time Jan 29, 2017 at 13:19 Initial Consult Date Type of Consultation: Hematology/Oncology 24 HR Interval Summary Free Text/Dictation The patient underwent thoracentesis and is much more comfortable now. Exam/Review of Systems Vital Signs Vitals Vital Signs Date Time Temp Pulse Resp B/P Pulse Ox O2 Delivery O2 Flow Rate FiO2 01/31/17 16:17 98.8 92 17 114/55 92 01/31/17 13:45 3.0 01/31/17 07:59 Nasal Cannula Intake and Output 01/30/17 01/30/17 01/31/17 15:00 23:00 07:00 Intake Total 400 ml 700 ml Balance 400 ml 700 ml Exam Constitutional: alert, oriented Psych: no complaints Head: normocephalic Eyes: nl conjunctiva Neck: supple Respiratory: diminished breath sounds (but improved aeration of left lung) Cardiovascular: regular rate and rhythm Gastrointestinal: non-tender, soft Musculoskeletal: nl extremities to inspection Results Result Diagram: 01/30/17 0547 01/30/17 0547 Results 24 hrs Laboratory Tests Test 01/31/17 10:40 Body Fluid Appearance CLOUDY Body Fluid Color YELLOW Body Fluid Eosinophils % 4 Body Fluid Lactate Dehydrogenase Body Fluid Lymphocytes (%) 71 Body Fluid Monocytes % 21 Body Fluid Neutrophils % 4 Body Fluid RBC Body Fluid Total Protein 5.1 Body Fluid Type THORACENTESIS FLUID Body Fluid Volume 1000.0 Body Fluid WBC 140 Medications Medications Current Medications Ondansetron HCl (Zofran Inj) 4 mg Q6H PRN IV NAUSEA AND/OR VOMITING; Start 01/29 at 15:30 Acetaminophen (Tylenol Tab) 650 mg Q6H PRN PO PAIN LEVEL 1-3 OR FEVER Last administered on 01/31/17 04:15; Admin Dose 650 MG; Start 01/29/17 at 15:30 Acetaminophen/ Hydrocodone Bitart ([place] (5/325)) 1 tab Q6H PRN PO MODERATE PAIN LEVEL 4-6; Start 01/29/17 at 15:30 Morphine Sulfate (morphine) 2 mg Q4H PRN IV SEVERE PAIN LEVEL 7-10; Start at 15:30 Docusate Sodium (Colace) 100 mg Q12H PRN PO CONSTIPATION; Start 01/29/17 at 15: 30 Zolpidem Tartrate (Ambien) 5 mg QHS PRN PO SLEEP; Start 01/29/17 at 15:30 NAVNEET SUH MD Jan 31, 2017 17:01
[2017-01-31] MEDS ORDERED: IOHEXOL 300MG/ML 150 ML BTL ONE (20:30)
[2017-01-31] MEDS ORDERED: SOD CHLORIDE 0.9% 100 ML ONE (20:30)
--- NOTE | 2017-01-31 23:46 | RADRPT ---
PROCEDURE: CT abdomen and pelvis with contrast. CLINICAL INDICATION: Uterine cancer progression TECHNIQUE: CT scan of the abdomen and pelvis with contrast was performed. Oral contrast media was utilized Coronal and sagittal images were also reformatted. 80 cc Omnipaque-300 intravenous contras t was administered without complication. Total exam CTDIvol = 7.58 mGy and DLP = 372.82 mGy-cm. COMPARISON: CT abdomen and pelvis 04/28/2016. CT thorax 01/29/2017 FINDINGS: Visualized lower thorax: Partially visualized central catheter in the right atrium is noted. Compre ssive atelectasis of the visualized left lower lobe is present with a large unchanged left pleural e ffusion. Right lung base remains clear. Liver, gallbladder, pancreas and spleen: Normal hepatic contour, attenuation in size. There is no evidence for liver mass or ductal dilatation. The gallbladder is unremarkable. No common bile duct dilatation is evident. The pancreas is normal. The spleen is normal, not enlarged. Adrenal glands and genitourinary system: The adrenal glands are normal bilaterally. Right kidney is normal in size, the left kidney is severely atrophic and nonfunctioning. There is no evidence of r ight renal mass. The ureters are unremarkable. The urinary bladder shows no abnormality. Interval hysterectomy compared to the previous examination. There is no evidence of ovarian or adnexal mass . Gastrointestinal system: The stomach is relatively decompressed and without wall thickening There is no evidence of obstruction, ileus or inflammation. There is no evidence of appendicitis. Enteric contrast media is within the distal ileum and through the entire colon to the rectum, no colitis or diverticulitis is present. Peritoneum, retroperitoneum, vessels and lymph nodes: The abdominal aorta is normal in caliber. Th ere is no evidence for atherosclerotic calcification. Inferior vena cava is normal in caliber. The re is no evidence for adenopathy. The peritoneal cavity is normal with no evidence for ascites. Int erval placement of a port, the hub in the subcutaneous fat overlying the right upper abdominal wall with the distal tip of the catheter pointing to the left of midline just anterior to the urinary nir dder. Previously seen peritoneal metastatic foci are not demonstrated Osseous structures and musculoskeletal system: There is no evidence for acute osseous abnormality o r muscular pathology. No subcutaneous abnormalities are present. RPTAT:HJJR IMPRESSION: 1. Compared to the previous study of 04/28/2016, findings are consistent with a positive response t o presumed interval therapy with resolution of peritoneal carcinomatosis, subcapsular hepatic implan t and interval hysterectomy. 2. New peritoneal port is present the distal tip in satisfactory position in the anterior pelvis in the hub in the subcutaneous fat overlying the right upper abdominal wall. 3. Large left pleural effusion and compressive atelectasis of the left lower lobe is unchanged from the recent CT chest of 01/29/2017. 4. Nonfunctioning severely atrophic left kidney is again identified. Physician Mandeep Date Time Electronically viewed and signed by Gabriel Meier Physician on 01/31/2017 23:46 JR/
[2017-02-01] VITALS (15 sets, daily range): BP systolic 102–115; BP diastolic 52–65; PULSE 80–99; RESP 17–20
[2017-02-01 07:49] LABS: ADD SCAN DIFF NO
[2017-02-01 08:16] LABS: POTASSIUM 3.2 mmol/L (3.5-5.1)
[2017-02-01 08:19] LABS: CREATININE 0.63 mg/dl (0.44-1.00)
[2017-02-01 08:20] LABS: MAGNESIUM 1.9 mg/dl (1.7-2.5); PHOSPHORUS 4.4 mg/dl (2.5-4.9)
[2017-02-01 09:20] LABS: BASOPHILS % 0.3 % (0.0-2.0); EOSINOPHILS # 0.1 10^3/ul (0.0-0.5); EOSINOPHILS % 1.9 % (0.0-7.0); HEMATOCRIT 34.2 % (37.0-47.0); HEMOGLOBIN 11.3 g/dl (12.0-16.0); LYMPHOCYTES # 1.4 10^3/ul (0.8-2.9); LYMPHOCYTES % 18.4 % (15.0-51.0); MEAN CORPUSCULAR HEMOGLOBIN 27.8 pg (29.0-33.0); MEAN CORPUSCULAR VOLUME 84.2 fl (82.0-101.0); MEAN PLATELET VOLUME 9.8 fl (7.4-10.4); MONOCYTE # 0.3 10^3/ul (0.3-0.9); MONOCYTES % 4.6 % (0.0-11.0); NEUTROPHIL # 5.5 10^3/ul (1.6-7.5); NEUTROPHILS % 74.4 % (39.0-77.0); PLATELET COUNT 308 10^3/UL (140-415); RED BLOOD COUNT 4.06 10^6/ul (4.20-5.40); RED CELL DISTRIBUTION WIDTH 14.1 % (11.5-14.5); WHITE BLOOD COUNT 7.4 10^3/ul (4.8-10.8)
--- NOTE | 2017-02-01 13:57 | CONS ---
Date/Time of Note Date/Time of Note DATE: 02/01/17 TIME: 13:51 Assessment/Plan Assessment/Plan Chief Complaint/Hosp Course The patient is a 66 year old female who is a patient of Dr. Vin Marte and Dr. 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 She has not seen Dr. Bonner for 3 months and was lost to follow-up. Repeat CT A/P does not demonstrate obvious recurrence but we need to f/u cytology on pleural fluid to evaluate for recurrence - now s/p thoracentesis today with 1L fluid removed, f/u pleural studies. Appreciate pulmonary recs for pleurX catheter placement given probable malignant origin if reaccumulates - If confirmed malignant effusion and scans suggest progression, may give her chemo with carbo/doxil in house or as outpatient. - Patient will need to follow-up with Dr. Bonner as an outpatient - Given extensive family history of ovarian and uterine cancer in her mother at age 39, sister at age 34, niece who apparently tested positive for a genetic mutation, would recommend genetic testing Problems: Consultation Date/Type/Reason Admit Date/Time Jan 29, 2017 at 13:19 Initial Consult Date 01/30/17 Type of Consultation: Hematology/Oncology Reason for Consultation metastatic uterine cancer Referring Provider: CHRISTINE HYDE 24 HR Interval Summary Free Text/Dictation thoracentesis done. CT A/P done. pt breathing better Exam/Review of Systems Vital Signs Vitals Vital Signs Date Time Temp Pulse Resp B/P Pulse Ox O2 Delivery O2 Flow Rate FiO2 02/01/17 12:14 98 02/01/17 11:59 98.8 20 114/56 98 02/01/17 08:10 Nasal Cannula 2.0 Intake and Output 01/31/17 01/31/17 02/01/17 15:00 23:00 07:00 Intake Total 740 ml Balance 740 ml Exam Constitutional: alert, oriented Psych: nl mood/affect, no complaints Head: normocephalic Eyes: nl conjunctiva ENMT: nl external ears & nose Neck: supple Respiratory: diminished breath sounds Cardiovascular: nl pulses, regular rate and rhythm Gastrointestinal: soft Musculoskeletal: nl extremities to inspection Extremities: normal pulses Results Result Diagram: 02/01/17 0647 02/01/17 0647 Results 24 hrs Laboratory Tests Test 02/01/17 06:47 Anion Gap 15 Basophils # 0.0 Basophils % 0.3 Blood Urea Nitrogen 10 Calcium Level 9.0 Carbon Dioxide Level 27 Chloride Level 105 Creatinine 0.63 Eosinophils # 0.1 Eosinophils % 1.9 Glucose Level 88 Hematocrit 34.2 L Hemoglobin 11.3 L Lymphocytes # 1.4 Lymphocytes % 18.4 Magnesium Level 1.9 Mean Corpuscular Hemoglobin 27.8 L Mean Corpuscular Hemoglobin Concent 33.0 Mean Corpuscular Volume 84.2 Mean Platelet Volume 9.8 Monocytes # 0.3 Monocytes % 4.6 Neutrophils # 5.5 Neutrophils % 74.4 Nucleated Red Blood Cells # 0.0 Nucleated Red Blood Cells % 0.0 Phosphorus Level 4.4 Platelet Count 308 Potassium Level 3.2 L Red Blood Count 4.06 L Red Cell Distribution Width 14.1 Sodium Level 144 White Blood Count 7.4 # Medications Medications Current Medications Ondansetron HCl (Zofran Inj) 4 mg Q6H PRN IV NAUSEA AND/OR VOMITING; Start 01/29 at 15:30 Acetaminophen (Tylenol Tab) 650 mg Q6H PRN PO PAIN LEVEL 1-3 OR FEVER Last administered on 01/31/17 04:15; Admin Dose 650 MG; Start 01/29/17 at 15:30 Acetaminophen/ Hydrocodone Bitart ([place] (5/325)) 1 tab Q6H PRN PO MODERATE PAIN LEVEL 4-6; Start 01/29/17 at 15:30 Morphine Sulfate (morphine) 2 mg Q4H PRN IV SEVERE PAIN LEVEL 7-10; Start at 15:30 Docusate Sodium (Colace) 100 mg Q12H PRN PO CONSTIPATION; Start 01/29/17 at 15: 30 Zolpidem Tartrate (Ambien) 5 mg QHS PRN PO SLEEP Last administered on 01/31/17 21:10; Admin Dose 5 MG; Start 01/29/17 at 15:30 NETTIE ROSAS M.D. Feb 01, 2017 13:57
--- NOTE | 2017-02-01 15:13 | RADRPT ---
PROCEDURE: XR Chest. CLINICAL INDICATION: Shortness of breath. TECHNIQUE: Single frontal view. COMPARISON: 01/31/2017. FINDINGS: There is a right internal jugular vein implanted port central venous catheter with the tip in the lo wer superior vena cava. The right lung is clear. There is a large left pleural effusion and atelec tasis throughout most of the left lung with sparing of the left apex. The heart size is normal. There is no pleural effusion. There is no pneumothorax. IMPRESSION: 1. Right chest port unchanged. 2. Large left pleural effusion and atelectasis throughout most of the left lung. 3. No change from 01/31/2017. RPTAT: QQ .Dominic Wilson MD, MD Date Time Electronically viewed and signed by .Dominic Wilson MD, on 02/01/2017 15:13 .R/
--- NOTE | 2017-02-01 16:00 | PN ---
Date/Time of Note Date/Time of Note DATE: 02/01/17 TIME: 15:58 Assessment/Plan VTE Prophylaxis VTE Prophylaxis Intervention: SCD's Lines/Catheters IV Catheter Type (from [facility] SANDIP CATH Urinary Cath still in place: No Assessment/Plan Chief Complaint/Hosp Course 1. Acute respiratory distress likely 2/2 malignant effusion -s/p US Thoracentesis, fluid analysis pending - Pulmonology consultation appreciated -pt has persistent pleural effusion and after discussion with Pulm and CT surgery pt will need a Chest tube placed and then possibly a Pleurodesis 2. History of stage IV cervical cancer with known peritoneal carcinomatosis -Onc consult appreciated -CT abd showed decreased cancer burden 3. Normocytic anemia, likely anemia of chronic disease from underlying malignancy PPx-Sequential compression devices Problems: Subjective 24 Hr Interval Summary Respiratory: shortness of breath Exam/Review of Systems Vital Signs Vitals Vital Signs Date Time Temp Pulse Resp B/P Pulse Ox O2 Delivery O2 Flow Rate FiO2 02/01/17 15:55 98.6 94 20 105/65 100 02/01/17 15:15 2.0 02/01/17 08:10 Nasal Cannula Intake and Output 01/31/17 01/31/17 02/01/17 15:00 23:00 07:00 Intake Total 740 ml Balance 740 ml Exam Constitutional: alert, oriented Respiratory: diminished breath sounds (L) Cardiovascular: regular rate and rhythm Gastrointestinal: soft, No distended Musculoskeletal: nl extremities to inspection Results Result Diagram: 02/01/17 0647 02/01/17 0647 Results 24 hrs Laboratory Tests Test 02/01/17 06:47 Anion Gap 15 Basophils # 0.0 Basophils % 0.3 Blood Urea Nitrogen 10 Calcium Level 9.0 Carbon Dioxide Level 27 Chloride Level 105 Creatinine 0.63 Eosinophils # 0.1 Eosinophils % 1.9 Glucose Level 88 Hematocrit 34.2 L Hemoglobin 11.3 L Lymphocytes # 1.4 Lymphocytes % 18.4 Magnesium Level 1.9 Mean Corpuscular Hemoglobin 27.8 L Mean Corpuscular Hemoglobin Concent 33.0 Mean Corpuscular Volume 84.2 Mean Platelet Volume 9.8 Monocytes # 0.3 Monocytes % 4.6 Neutrophils # 5.5 Neutrophils % 74.4 Nucleated Red Blood Cells # 0.0 Nucleated Red Blood Cells % 0.0 Phosphorus Level 4.4 Platelet Count 308 Potassium Level 3.2 L Red Blood Count 4.06 L Red Cell Distribution Width 14.1 Sodium Level 144 White Blood Count 7.4 # Medications Medications Current Medications Ondansetron HCl (Zofran Inj) 4 mg Q6H PRN IV NAUSEA AND/OR VOMITING; Start 01/29 at 15:30 Acetaminophen (Tylenol Tab) 650 mg Q6H PRN PO PAIN LEVEL 1-3 OR FEVER Last administered on 01/31/17 04:15; Admin Dose 650 MG; Start 01/29/17 at 15:30 Acetaminophen/ Hydrocodone Bitart ([place] (5/325)) 1 tab Q6H PRN PO MODERATE PAIN LEVEL 4-6; Start 01/29/17 at 15:30 Morphine Sulfate (morphine) 2 mg Q4H PRN IV SEVERE PAIN LEVEL 7-10; Start at 15:30 Docusate Sodium (Colace) 100 mg Q12H PRN PO CONSTIPATION; Start 01/29/17 at 15: 30 Zolpidem Tartrate (Ambien) 5 mg QHS PRN PO SLEEP Last administered on 01/31/17 21:10; Admin Dose 5 MG; Start 01/29/17 at 15:30 CHRISTINE HYDE Feb 01, 2017 16:00
--- NOTE | 2017-02-01 16:02 | CONS ---
Date/Time of Note Date/Time of Note DATE: 02/01/17 TIME: 15:59 Consult Date/Type/Reason Admit Date/Time Jan 29, 2017 at 13:19 Initial Consult Date Type of Consultation: Pulm Ordering Provider: CHRISTINE HYDE Subjective CT thorax and CXR's reviewed in detail. No events. Objective Vital Signs Date Time Temp Pulse Resp B/P Pulse Ox O2 Delivery O2 Flow Rate FiO2 02/01/17 15:55 98.6 94 20 105/65 100 02/01/17 15:15 2.0 02/01/17 08:10 Nasal Cannula Intake and Output 01/31/17 01/31/17 02/01/17 15:00 23:00 07:00 Intake Total 740 ml Balance 740 ml HEENT: Neck supple; no JVD; no LAD CVS: RRR, S1 and S2 CHEST: Absent BS left side ABD: Soft, NT, + BS EXT: No c/c/e Results/Medications Result Diagram: 02/01/17 0647 02/01/17 0647 Results 24 hrs Laboratory Tests Test 02/01/17 06:47 Anion Gap 15 Basophils # 0.0 Basophils % 0.3 Blood Urea Nitrogen 10 Calcium Level 9.0 Carbon Dioxide Level 27 Chloride Level 105 Creatinine 0.63 Eosinophils # 0.1 Eosinophils % 1.9 Glucose Level 88 Hematocrit 34.2 L Hemoglobin 11.3 L Lymphocytes # 1.4 Lymphocytes % 18.4 Magnesium Level 1.9 Mean Corpuscular Hemoglobin 27.8 L Mean Corpuscular Hemoglobin Concent 33.0 Mean Corpuscular Volume 84.2 Mean Platelet Volume 9.8 Monocytes # 0.3 Monocytes % 4.6 Neutrophils # 5.5 Neutrophils % 74.4 Nucleated Red Blood Cells # 0.0 Nucleated Red Blood Cells % 0.0 Phosphorus Level 4.4 Platelet Count 308 Potassium Level 3.2 L Red Blood Count 4.06 L Red Cell Distribution Width 14.1 Sodium Level 144 White Blood Count 7.4 # Medications Current Medications Ondansetron HCl (Zofran Inj) 4 mg Q6H PRN IV NAUSEA AND/OR VOMITING; Start 01/29 at 15:30 Acetaminophen (Tylenol Tab) 650 mg Q6H PRN PO PAIN LEVEL 1-3 OR FEVER Last administered on 01/31/17t 04:15; Admin Dose 650 MG; Start 01/29/17 at 15:30 Acetaminophen/ Hydrocodone Bitart ([place] (5/325)) 1 tab Q6H PRN PO MODERATE PAIN LEVEL 4-6; Start 01/29/17 at 15:30 Morphine Sulfate (morphine) 2 mg Q4H PRN IV SEVERE PAIN LEVEL 7-10; Start at 15:30 Docusate Sodium (Colace) 100 mg Q12H PRN PO CONSTIPATION; Start 01/29/17 at 15: 30 Zolpidem Tartrate (Ambien) 5 mg QHS PRN PO SLEEP Last administered on 01/31/17 21:10; Admin Dose 5 MG; Start 01/29/17 at 15:30 Assessment/Plan Additional Assessment/Plan IMPRESSION" 1. Large Left Pleural effusion--likely malignant. s/p thora x 1 L; cytology pending 2. Stage IV uterine cancer status post total abdominal hysterectomy and bilateral salpingo-oophorectomy RECS: 1. In view of the size of the effusion, she would benefit from a small-bore pigtail (Jim catheter) insertion for full drainage as well as repeat cytology 2. Based on the findings and discussion with Onc can decide on closed vs. VATS pleural sclerosis CASPER DASH MD Feb 01, 2017 16:02
--- NOTE | 2017-02-01 17:10 | RADRPT ---
PROCEDURE: Ultrasound guidance for placement of needle in left pleural space. CLINICAL INDICATION: Left pleural effusion. TECHNIQUE: Prior to the procedure, informed consent was obtained. Risks including bleeding, infection, and pneu mothorax were explained to the patient. The patient understood and was willing to proceed. A procedu ral pause was performed. The patient's name, date of , and procedure to be performed were verif ied. The needle was inserted with all elements of maximal sterile barrier technique. All of the foll owing were used: head covering, facial mask, sterile gown, sterile gloves, a large sterile sheet, callaway nd hygiene, and 2% chlorhexidine for cutaneous antisepsis. The left lateral chest wall was prepped and draped in usual sterile fashion. Limited sonography of the left lateral chest was then performed. Noted is a left pleural effusion. U ltrasound images were recorded and stored in the patient's medical record. Following the local injection of Xylocaine, the left pleural space at the site of the pleural effusi on was punctured under sonographic guidance with a 5-German Yueh needle and pleural fluid was aspira jovita. The patient tolerated the procedure well. The remainder of the procedure was performed and di ctated under separate cover. COMPARISON: None. FINDINGS: The ultrasound images demonstrate a left pleural effusion. The subsequent images demonstrate the ne edle entering the left pleural space. IMPRESSION: 1. Ultrasound guidance for a needle placement in left pleural space. RPTAT: QQ .Dominic Wilson MD, MD Date Time Electronically viewed and signed by .Dominic Wilson MD, on 02/01/2017 17:09 .R/
--- NOTE | 2017-02-01 17:27 | RADRPT ---
PROCEDURE: Fluoroscopic and ultrasound guided placement of left chest tube. CLINICAL INDICATION: Shortness of breath. Large malignant left pleural effusion. TECHNIQUE: Informed consent was obtained. The procedure, risks, benefits, complications and alternatives were explained to the patient. Risks including bleeding, infection, and pneumothorax were explained. The patient understood and was willing to proceed. A procedural pause was performed. The patient's name, date of , and procedure to be performed w ere verified. The left lateral chest wall were prepped and draped in usual sterile fashion. Following the local injection of 1% lidocaine, a 19-gauge Yueh needle was advanced into the left ple ural space in the anterior axillary line at the 6/7 interspace with ultrasound guidance. Serous flui d was aspirated confirming position. The Yueh metal needle was removed leaving the plastic outer can nula in position. A 0.035 inch guidewire was advanced into the left pleural space through the plast ic cannula with fluoroscopic guidance. The plastic cannula was removed. The tract was dilated to 1 0-Martiniquais and a 10-Martiniquais multipurpose drainage catheter was then advanced over the guide wire. The guidewire was removed. Fluoroscopic guidance demonstrates the catheter in satisfactory position wit hin the pleural space. The catheter was sutured to the patient's skin with 2-0 monofilament. A Pleu r-Evac device was attached to the end of the chest tube. A dressing was applied. The patient tolerated procedure well. COMPARISON: Chest x-ray done earlier the same day. FINDINGS: Final images demonstrate the tip of the catheter in the lower left pleural space. A total of 0.2 mi nutes of fluoroscopy time was used. IMPRESSION: 1. Successful ultrasound and fluoroscopic guided placement of left chest tube. RPTAT: QQ .Dominic Wilson MD, Date Time Electronically viewed and signed by .Dominic Wilson MD, on 02/01/2017 17:27 .R/
[2017-02-01] MEDS: HYDROCODONE/APAP (5/325) TAB PO PRN ×2 (19:13→22:29)
[2017-02-02] VITALS (11 sets, daily range): BP systolic 101–112; BP diastolic 57–59; PULSE 77–97; RESP 20
[2017-02-02] MEDS ORDERED: POTASSIUM CHLORIDE (SR) 20 MEQ TAB PO STA (09:16)
[2017-02-02] MEDS: HYDROCODONE/APAP (5/325) TAB PO PRN ×3 (09:44→22:14)
[2017-02-02] MEDS ORDERED: POTASSIUM CHLORIDE 250 ML IVPB ONE (10:30)
--- NOTE | 2017-02-02 12:58 | PN ---
Date/Time of Note Date/Time of Note DATE: 02/02/17 TIME: 12:54 Assessment/Plan VTE Prophylaxis VTE Prophylaxis Intervention: SCD's Lines/Catheters IV Catheter Type (from Nrs): PORTHACATH Urinary Cath still in place: No Assessment/Plan Chief Complaint/Hosp Course 1. Acute respiratory distress likely 2/2 malignant effusion -s/p US Thoracentesis, fluid analysis pending -Pulmonology consultation appreciated -pt has persistent pleural effusion and after discussion with Pulm and CT surgery it was decided to place a Chest tube which was done yesterday, pt may then need a Pleurodesis when lungs dry if fluid cytology does in fact indicate a malignant effusion 2. History of stage IV cervical cancer with known peritoneal carcinomatosis -Onc following -CT abd showed decreased cancer burden 3. Normocytic anemia, likely anemia of chronic disease from underlying malignancy PPx-Sequential compression devices Problems: Subjective 24 Hr Interval Summary Constitutional: no complaints Exam/Review of Systems Vital Signs Vitals Vital Signs Date Time Temp Pulse Resp B/P Pulse Ox O2 Delivery O2 Flow Rate FiO2 02/02/17 12:23 78 02/02/17 04:00 98.0 20 101/58 96 Nasal Cannula 2.0 Intake and Output 02/01/17 02/01/17 02/02/17 15:00 23:00 07:00 Intake Total 720 ml 450 ml Output Total 360 ml 100 ml Balance 360 ml 350 ml Exam Constitutional: alert, oriented Respiratory: clear to auscultation, other (Chest Tube noted ) Cardiovascular: regular rate and rhythm Gastrointestinal: soft, No distended Musculoskeletal: nl extremities to inspection Results Result Diagram: 02/01/17 0647 02/01/17 0647 Medications Medications Current Medications Ondansetron HCl (Zofran Inj) 4 mg Q6H PRN IV NAUSEA AND/OR VOMITING; Start 01/29 at 15:30 Acetaminophen (Tylenol Tab) 650 mg Q6H PRN PO PAIN LEVEL 1-3 OR FEVER Last administered on 01/31/17 04:15; Admin Dose 650 MG; Start 01/29/17 at 15:30 Acetaminophen/ Hydrocodone Bitart ([place] (5/325)) 1 tab Q6H PRN PO MODERATE PAIN LEVEL 4-6 Last administered on 02/02/17 09:44; Admin Dose 1 TAB; Start 01/29 at 15:30 Morphine Sulfate (morphine) 2 mg Q4H PRN IV SEVERE PAIN LEVEL 7-10; Start at 15:30 Docusate Sodium (Colace) 100 mg Q12H PRN PO CONSTIPATION; Start 01/29/17 at 15: 30 Zolpidem Tartrate 5 mg 5 mg QHS PRN PO SLEEP Last administered on 01/31/17 21: 10; Admin Dose 5 MG; Start 01/29/17 at 15:30 Potassium Chloride (KCl 40 MEQ/250 ML NS) 250 ml @ 62.5 mls/hr ONCE ONCE IVPB Last administered on 02/02/17 11:11; Admin Dose 62.5 MLS/HR; Start 02/02/17 at 10:30; Stop 02/02/17 at 14:29 CHRISTINE HYDE Feb 02, 2017 12:58
--- NOTE | 2017-02-02 14:23 | CONS ---
Date/Time of Note Date/Time of Note DATE: 02/02/17 TIME: 14:20 Consult Date/Type/Reason Admit Date/Time Jan 29, 2017 at 13:19 Type of Consultation: Pulm Ordering Provider: CHRISTINE HYDE Subjective s/p placement of a 10F left pleural pigtail catheter. 600 ml drainage since placement. Objective Vital Signs Date Time Temp Pulse Resp B/P Pulse Ox O2 Delivery O2 Flow Rate FiO2 02/02/17 12:23 78 02/02/17 08:15 Nasal Cannula 2.0 02/02/17 04:00 98.0 20 101/58 96 Intake and Output 02/01/17 02/01/17 02/02/17 15:00 23:00 07:00 Intake Total 720 ml 450 ml Output Total 360 ml 100 ml Balance 360 ml 350 ml HEENT: Neck supple; no JVD; no LAD CVS: RRR, S1 and S2 CHEST: Reduced BS left side ABD: Soft, NT, + BS EXT: No c/c/e Results/Medications Result Diagram: 02/01/17 0647 02/01/17 0647 Medications Current Medications Ondansetron HCl (Zofran Inj) 4 mg Q6H PRN IV NAUSEA AND/OR VOMITING; Start 01/29 at 15:30 Acetaminophen (Tylenol Tab) 650 mg Q6H PRN PO PAIN LEVEL 1-3 OR FEVER Last administered on 01/31/17 04:15; Admin Dose 650 MG; Start 01/29/17 at 15:30 Acetaminophen/ Hydrocodone Bitart ([place] (5/325)) 1 tab Q6H PRN PO MODERATE PAIN LEVEL 4-6 Last administered on 02/02/17 09:44; Admin Dose 1 TAB; Start 01/29 at 15:30 Morphine Sulfate (morphine) 2 mg Q4H PRN IV SEVERE PAIN LEVEL 7-10; Start at 15:30 Docusate Sodium (Colace) 100 mg Q12H PRN PO CONSTIPATION; Start 01/29/17 at 15: 30 Zolpidem Tartrate 5 mg 5 mg QHS PRN PO SLEEP Last administered on 01/31/17 21: 10; Admin Dose 5 MG; Start 01/29/17 at 15:30 Potassium Chloride (KCl 40 MEQ/250 ML NS) 250 ml @ 62.5 mls/hr ONCE ONCE IVPB Last administered on 02/02/17t 11:11; Admin Dose 62.5 MLS/HR; Start 02/02/17 at 10:30; Stop 02/02/17 at 14:29 Assessment/Plan Additional Assessment/Plan IMPRESSION: 1. Large Left Pleural effusion--likely malignant. s/p thora x 1 L and now small- bore CT placement. cytology pending 2. Stage IV uterine cancer status post total abdominal hysterectomy and bilateral salpingo-oophorectomy RECS: 1. Place left chest tube to 20 cm H2O suction; flush catheter q shift 2. Will await pleural fluid cytology 3. Based on these findings and discussion with Onc, will decide on closed vs. VATS pleural sclerosis 4. Am CXR CASPER DASH MD Feb 02, 2017 14:23
[2017-02-03] VITALS (12 sets, daily range): BP systolic 102–115; BP diastolic 55–60; PULSE 75–101; RESP 18–20
[2017-02-03 07:52] LABS: ADD SCAN DIFF NO
[2017-02-03 07:57] LABS: BASOPHILS % 0.4 % (0.0-2.0); EOSINOPHILS # 0.2 10^3/ul (0.0-0.5); EOSINOPHILS % 3.3 % (0.0-7.0); HEMATOCRIT 36.7 % (37.0-47.0); HEMOGLOBIN 11.9 g/dl (12.0-16.0); LYMPHOCYTES # 1.3 10^3/ul (0.8-2.9); MEAN CORPUSCULAR HEMOGLOBIN 27.3 pg (29.0-33.0); MEAN CORPUSCULAR HGB CONC 32.4 g/dl (32.0-37.0); MEAN CORPUSCULAR VOLUME 84.2 fl (82.0-101.0); MEAN PLATELET VOLUME 9.6 fl (7.4-10.4); MONOCYTE # 0.3 10^3/ul (0.3-0.9); MONOCYTES % 5.8 % (0.0-11.0); NEUTROPHIL # 3.4 10^3/ul (1.6-7.5); NEUTROPHILS % 65.1 % (39.0-77.0); PLATELET COUNT 309 10^3/UL (140-415); RED BLOOD COUNT 4.36 10^6/ul (4.20-5.40); RED CELL DISTRIBUTION WIDTH 13.9 % (11.5-14.5); WHITE BLOOD COUNT 5.2 10^3/ul (4.8-10.8)
[2017-02-03 08:10] LABS: POTASSIUM 4.5 mmol/L (3.5-5.1)
[2017-02-03 08:13] LABS: CREATININE 0.65 mg/dl (0.44-1.00)
[2017-02-03 08:14] LABS: CALCIUM 9.1 mg/dl (8.4-10.2)
--- NOTE | 2017-02-03 09:11 | RADRPT ---
PROCEDURE: XR Chest. CLINICAL INDICATION: Followup of a left pleural effusion as 66-year-old female. TECHNIQUE: Single frontal view of the chest was obtained COMPARISON: Chest x-ray 02/01/2017 10:53 a.m. FINDINGS: The soft tissues are normal. There are osteophytes in the thoracic spine. A Port-A-Cath is implant ed over the upper right chest wall with its distal tip in the distal superior vena cava. The heart is mildly enlarged. The cardiomediastinal silhouette, pulmonary vasculature and hilar structures ar e normal. There is a left-sided aorta. There is a loculated left pleural effusion with consolidative infiltrate and/or atelectasis in the lingular left lower lobe. There is a left-sided pigtail renaldo ter projecting at the level of the T7-8 posterior left intercostal space. IMPRESSION: 1. Status post placement of a left-sided pigtail thoracostomy tube with interval decrease in the siz e of the loculated left pleural effusion. 2. Persistent consolidative infiltrates in the lingular left lower lobe. 3. Stable appearance of the belén-catheter projecting across the upper right chest wall. RPTAT:AAJJ Physician Earline Date Time Electronically viewed and signed by Physician Earline on 02/03/2017 09:10 RUBY/
--- NOTE | 2017-02-03 13:05 | CONS ---
Date/Time of Note Date/Time of Note DATE: 02/03/17 TIME: 13:01 Assessment/Plan Assessment/Plan Chief Complaint/Hosp Course The patient is a 66 year old female who is a patient of Dr. Vin Marte and Dr. 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 She has not seen Dr. Bonner for 3 months and was lost to follow-up. Repeat CT A/P does not demonstrate obvious recurrence but we need to f/u cytology on pleural fluid to evaluate for recurrence - now s/p thoracentesis today with 1L fluid removed, f/u pleural studies. Appreciate pulmonary recs for pleurX catheter placement given probable malignant origin if reaccumulates - If confirmed malignant effusion and scans suggest progression, may give her chemo with carbo/doxil in house or as outpatient. cytology is still pending - Patient will need to follow-up with Dr. Bonenr as an outpatient - Given extensive family history of ovarian and uterine cancer in her mother at age 39, sister at age 34, niece who apparently tested positive for a genetic mutation, would recommend genetic testing Problems: Consultation Date/Type/Reason Admit Date/Time Jan 29, 2017 at 13:19 Initial Consult Date 01/30/17 Type of Consultation: Hematology Reason for Consultation recurrent uterine cancer Referring Provider: CHRISTINE HYDE 24 HR Interval Summary Free Text/Dictation s/p placement of a 10F left pleural pigtail catheter. Exam/Review of Systems Vital Signs Vitals Vital Signs Date Time Temp Pulse Resp B/P Pulse Ox O2 Delivery O2 Flow Rate FiO2 02/03/17 12:22 98.8 81 20 103/57 98 02/03/17 08:29 Nasal Cannula 2.0 Intake and Output 02/02/17 02/02/17 02/03/17 14:59 22:59 06:59 Intake Total 840 ml 500 ml Output Total 80 ml 40 ml Balance 760 ml 460 ml Exam Constitutional: alert, oriented Psych: no complaints Head: atraumatic, normocephalic Eyes: nl conjunctiva ENMT: nl external ears & nose Neck: non-tender, supple Respiratory: clear to auscultation, normal air movement, other (L chest tube in place) Cardiovascular: nl pulses, regular rate and rhythm Gastrointestinal: soft Musculoskeletal: nl extremities to inspection Results Result Diagram: 02/03/17 0702/03/17 07 Results 24 hrs Laboratory Tests Test 02/03/17 07:05 Anion Gap 15 Basophils # 0.0 Basophils % 0.4 Blood Urea Nitrogen 10 Calcium Level 9.1 Carbon Dioxide Level 29 Chloride Level 103 Creatinine 0.65 Eosinophils # 0.2 Eosinophils % 3.3 Glucose Level 94 Hematocrit 36.7 L Hemoglobin 11.9 L Lymphocytes # 1.3 Lymphocytes % 25.0 Mean Corpuscular Hemoglobin 27.3 L Mean Corpuscular Hemoglobin Concent 32.4 Mean Corpuscular Volume 84.2 Mean Platelet Volume 9.6 Monocytes # 0.3 Monocytes % 5.8 Neutrophils # 3.4 Neutrophils % 65.1 Nucleated Red Blood Cells # 0.0 Nucleated Red Blood Cells % 0.0 Platelet Count 309 Potassium Level 4.5 Red Blood Count 4.36 Red Cell Distribution Width 13.9 Sodium Level 142 White Blood Count 5.2 # Medications Medications Current Medications Ondansetron HCl (Zofran Inj) 4 mg Q6H PRN IV NAUSEA AND/OR VOMITING; Start 01/29 at 15:30 Acetaminophen (Tylenol Tab) 650 mg Q6H PRN PO PAIN LEVEL 1-3 OR FEVER Last administered on 01/31/17 04:15; Admin Dose 650 MG; Start 01/29/17 at 15:30 Acetaminophen/ Hydrocodone Bitart ([place] (5/325)) 1 tab Q6H PRN PO MODERATE PAIN LEVEL 4-6 Last administered on 02/02/17 22:14; Admin Dose 1 TAB; Start 01/29 at 15:30 Morphine Sulfate (morphine) 2 mg Q4H PRN IV SEVERE PAIN LEVEL 7-10 Last administered on 02/03/17 09:47; Admin Dose 2 MG; Start 01/29/17 at 15:30 Docusate Sodium (Colace) 100 mg Q12H PRN PO CONSTIPATION; Start 01/29/17 at 15: 30 Zolpidem Tartrate (Ambien) 5 mg QHS PRN PO SLEEP Last administered on 01/31/17 21:10; Admin Dose 5 MG; Start 01/29/17 at 15:30 NETTIE ROSAS M.D. Feb 03, 2017 13:05
--- NOTE | 2017-02-03 13:23 | PN ---
Date/Time of Note Date/Time of Note DATE: 02/03/17 TIME: 13:13 Assessment/Plan VTE Prophylaxis VTE Prophylaxis Intervention: SCD's Lines/Catheters IV [facility] A CATH Urinary Cath still in place: No Assessment/Plan Assessment/Plan he patient is a 66 year old female who is a patient of Dr. Vin Marte and Dr. 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 She has not seen Dr. Bonner for 3 months and was lost to follow-up. Repeat CT A/P does not demonstrate obvious recurrence but we need to f/u cytology on pleural fluid to evaluate for recurrence 1. Left pleural effusion, s/p thoracentesis on 01/31/2017, s/p PleurX, 2. Acute respiratory distress 3. Stage IV cervical cancer with peritoneal carcinomatosis, follow up with oncology 4. Normocytic anemia, likely anemia of chronic disease from underlying malignancy 5. PPx-Sequential compression devices Subjective 24 Hr Interval Summary Free Text/Dictation left sided pleuritic chest pain, no respiratory distress Exam/Review of Systems Vital Signs Vitals Vital Signs Date Time Temp Pulse Resp B/P Pulse Ox O2 Delivery O2 Flow Rate FiO2 02/03/17 12:22 98.8 81 20 103/57 98 02/03/17 08:29 Nasal Cannula 2.0 Intake and Output 02/02/17 02/02/17 02/03/17 15:00 23:00 07:00 Intake Total 840 ml 500 ml Output Total 80 ml 40 ml Balance 760 ml 460 ml Exam Constitutional: alert, oriented, well developed Psych: nl mood/affect, no complaints Head: atraumatic, normocephalic Eyes: EOMI, PERRL, nl conjunctiva, nl lids ENMT: nl external ears & nose, nl lips & teeth, nl nasal mucosa & septum Neck: non-tender, supple Respiratory: clear to auscultation, diminished breath sounds (on left), normal air movement, No congested cough, No crackles/rales, No intercostal retraction, No labored breathing, No other, No respirations, No tactile fremitus, No wheezing Cardiovascular: nl pulses, regular rate and rhythm, No S3, No S4, No bruits, No diastolic murmur, No edema, No gallop, No irregular rhythm, No jugular venous distention (JVD), No murmurs/extra sounds, No other, No rub, No systolic murmur Gastrointestinal: nl liver, spleen, non-tender, soft Musculoskeletal: nl extremities to inspection Extremities: normal pulses, No calf tenderness, No clubbing, No cyanosis, No edema, No other, No palpable cord, No pitting pedal edema, No tenderness Neurological: MOLD RUNNER II-XII intact, nl mental status, nl speech, nl strength Skin: nl turgor Results Result Diagram: 02/03/17 0705 02/03/17 0705 Results 24 hrs Laboratory Tests Test 02/03/17 07:05 Anion Gap 15 Basophils # 0.0 Basophils % 0.4 Blood Urea Nitrogen 10 Calcium Level 9.1 Carbon Dioxide Level 29 Chloride Level 103 Creatinine 0.65 Eosinophils # 0.2 Eosinophils % 3.3 Glucose Level 94 Hematocrit 36.7 L Hemoglobin 11.9 L Lymphocytes # 1.3 Lymphocytes % 25.0 Mean Corpuscular Hemoglobin 27.3 L Mean Corpuscular Hemoglobin Concent 32.4 Mean Corpuscular Volume 84.2 Mean Platelet Volume 9.6 Monocytes # 0.3 Monocytes % 5.8 Neutrophils # 3.4 Neutrophils % 65.1 Nucleated Red Blood Cells # 0.0 Nucleated Red Blood Cells % 0.0 Platelet Count 309 Potassium Level 4.5 Red Blood Count 4.36 Red Cell Distribution Width 13.9 Sodium Level 142 White Blood Count 5.2 # Medications Medications Current Medications Ondansetron HCl (Zofran Inj) 4 mg Q6H PRN IV NAUSEA AND/OR VOMITING; Start 01/29 at 15:30 Acetaminophen (Tylenol Tab) 650 mg Q6H PRN PO PAIN LEVEL 1-3 OR FEVER Last administered on 01/31/17 04:15; Admin Dose 650 MG; Start 01/29/17 at 15:30 Acetaminophen/ Hydrocodone Bitart ([place] (5/325)) 1 tab Q6H PRN PO MODERATE PAIN LEVEL 4-6 Last administered on 02/02/17 22:14; Admin Dose 1 TAB; Start 01/29 at 15:30 Morphine Sulfate (morphine) 2 mg Q4H PRN IV SEVERE PAIN LEVEL 7-10 Last administered on 02/03/17 09:47; Admin Dose 2 MG; Start 01/29/17 at 15:30 Docusate Sodium (Colace) 100 mg Q12H PRN PO CONSTIPATION; Start 01/29/17 at 15: 30 Zolpidem Tartrate (Ambien) 5 mg QHS PRN PO SLEEP Last administered on 01/31/17 21:10; Admin Dose 5 MG; Start 01/29/17 at 15:30 MARISA COLLADO MD Feb 03, 2017 13:23
--- NOTE | 2017-02-03 13:29 | PN ---
DATE: 02/03/2017 SUBJECTIVE: Patient Stephen remains stable, continues to drain from pigtail catheter, remains hem odynamically stable. PHYSICAL EXAMINATION: VITAL SIGNS: Temperature 98, pulse 100, blood pressure 103/57, O2 saturation 98% on 3 L nasal cannu la. NECK: Supple. No JVD or lymphadenopathy. CARDIAC: S1, S2, no added sounds or murmurs. CHEST: Diminished air entry bilaterally. ABDOMEN: Soft, nontender. No guarding or rebound. EXTREMITIES: No cyanosis, clubbing, edema. NEUROLOGIC: Grossly intact. No focal deficits. LABORATORY DATA: White count 5.2, hemoglobin 11.9, platelets of 309. Chemistry within normal limit s. IMPRESSION AND PLAN: 1. Left pleural effusion, likely malignant, status post chest tube placement. We will continue wit h drainage, cytology is pending. 2. Stage IV uterine cancer. Continue hematology/oncology recommendations pending cytology report. Dictated By: JEROME MOODY/KOURTNEY Conf#: [id number] DID#: [id number]
[2017-02-03] MEDS: HYDROCODONE/APAP (5/325) TAB PO PRN (15:44)
[2017-02-04] VITALS (9 sets, daily range): BP systolic 99–124; BP diastolic 49–60; PULSE 77–90; RESP 18–20
[2017-02-04] MEDS: HYDROCODONE/APAP (5/325) TAB PO PRN ×2 (00:18→12:31)
--- NOTE | 2017-02-04 10:07 | RADRPT ---
PROCEDURE: XR Chest. CLINICAL INDICATION: CC 6-year-old female with pneumonia. TECHNIQUE: Single frontal view of the chest was obtained COMPARISON: Chest x-ray 02/03/2017 09:20 a.m. FINDINGS: The soft tissues are normal. There are degenerative osteophytes in the thoracic spine. The left ve ntricle is enlarged. The cardiomediastinal silhouette, pulmonary vasculature and hilar structures a re normal. A Port-A-Cath is noted over the left chest wall with its distal tip in the superior vena cava. There is a left-sided aorta. there is consolidative infiltrate around the left hilum, in the lingula and in the left lower lobe silhouetting the left diaphragm. There is a left-sided pigtail d rainage catheter projecting along the upper left heart border. There is a loculated left pleural ef fusion which is little changed. The costophrenic angles are normal. IMPRESSION: 1. Stable appearance of the left-sided pigtail thoracostomy tube with no interval change in the locu lated left pleural effusion when compared to 02/03/2017. 2. Consolidative infiltrate and atelectasis around the left hilum and in the lingula and left lower lobe. 3. Port-A-Cath infusion device over the right chest wall with the catheter tip in the superior vena cava. 4. Mild left ventricular enlargement. RPTAT:AAJJ Physician Earline Date Time Electronically viewed and signed by Jose Alejandro Dougherty Physician on 02/04/2017 10:07 RUBY/
--- NOTE | 2017-02-04 13:40 | CONS ---
Date/Time of Note Date/Time of Note DATE: 02/04/17 TIME: 13:37 Assessment/Plan Assessment/Plan Chief Complaint/Hosp Course The patient is a 66 year old female who is a patient of Dr. Vin Marte and Dr. 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 She has not seen Dr. Bonner for 3 months and was lost to follow-up. Repeat CT A/P does not demonstrate obvious recurrence and cytlogy on pleural fluid is negative -pt will need out patient f/u with Dr Bonner who will order a pet ct. at this time it is not clear if patient is progressing or not - Given extensive family history of ovarian and uterine cancer in her mother at age 39, sister at age 34, niece who apparently tested positive for a genetic mutation, would recommend genetic testing -ok for dc from oncology standpoint Problems: Consultation Date/Type/Reason Admit Date/Time Jan 29, 2017 at 13:19 Initial Consult Date 01/30/17 Type of Consultation: Hematology Reason for Consultation stage IV uterine cancer Referring Provider: CHRISTINE HYDE 24 HR Interval Summary Free Text/Dictation no acute overnight events. breathing better since placement of chest tube Exam/Review of Systems Vital Signs Vitals Vital Signs Date Time Temp Pulse Resp B/P Pulse Ox O2 Delivery O2 Flow Rate FiO2 02/04/17 12:06 86 02/04/17 11:44 98.4 18 99/57 99 02/04/17 08:30 Nasal Cannula 2.0 Intake and Output 02/03/17 02/03/17 02/04/17 15:00 23:00 07:00 Intake Total 1200 ml 580 ml Output Total 10 ml 20 ml Balance 1190 ml 560 ml Exam Constitutional: alert, oriented Psych: nl mood/affect, no complaints Head: normocephalic Eyes: nl conjunctiva ENMT: nl external ears & nose, nl lips & teeth Respiratory: other (chest tube in place) Cardiovascular: nl pulses, regular rate and rhythm Gastrointestinal: soft Musculoskeletal: nl extremities to inspection, nl gait and stance Results Result Diagram: 02/03/17 0705 02/03/17 07 Medications Medications Current Medications Ondansetron HCl (Zofran Inj) 4 mg Q6H PRN IV NAUSEA AND/OR VOMITING; Start 01/29 at 15:30 Acetaminophen (Tylenol Tab) 650 mg Q6H PRN PO PAIN LEVEL 1-3 OR FEVER Last administered on 01/31/17 04:15; Admin Dose 650 MG; Start 01/29/17 at 15:30 Acetaminophen/ Hydrocodone Bitart ([place] (5/325)) 1 tab Q6H PRN PO MODERATE PAIN LEVEL 4-6 Last administered on 02/04/17 12:31; Admin Dose 1 TAB; Start 01/29 at 15:30 Morphine Sulfate (morphine) 2 mg Q4H PRN IV SEVERE PAIN LEVEL 7-10 Last administered on 02/03/17 09:47; Admin Dose 2 MG; Start 01/29/17 at 15:30 Docusate Sodium (Colace) 100 mg Q12H PRN PO CONSTIPATION; Start 01/29/17 at 15: 30 Zolpidem Tartrate (Ambien) 5 mg QHS PRN PO SLEEP Last administered on 01/31/17 21:10; Admin Dose 5 MG; Start 01/29/17 at 15:30 NETTIE ROSAS M.D. Feb 04, 2017 13:40
[2017-02-04] MEDS ORDERED: HYDR-906 PO (13:55)
--- NOTE | 2017-02-04 14:06 | DS ---
Date/Time of Note Date/Time of Note DATE: 02/04/17 TIME: 13:58 Discharge Summary Admission/Discharge Info Admit Date/Time Jan 29, 2017 at 13:19 Discharge Date/Time Final Diagnosis 1. Left pleural effusion, s/p thoracentesis on 01/31/2017, s/p PleurX, 2. Acute respiratory distress resolved 3. Stage IV cervical cancer with peritoneal carcinomatosis, follow up with oncology 4. Normocytic anemia, likely anemia of chronic disease from underlying malignancy Patient Condition: Stable Hospital Course The patient is a 66 year old female who is a patient of Dr. Vin Marte and Dr. 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 CT scan revealed large loculated left pleural effusion with associated atelectasis causing mediastinal shift to the right. There is an near total atelectasis of the entire left lung with minimal amount of aerated lung seen at the left lung apex. Patient had PleurX catheter inserted on 02/01/2017. Pleural fluid cytology is negative. Patient will need out patient f/u with Dr Bonner who will order a pet ct. at this time it is not clear if patient is progressing or not - Given extensive family history of ovarian and uterine cancer in her mother at age 39, sister at age 34, niece who apparently tested positive for a genetic mutation, would recommend genetic testing Home Meds Active Scripts Hydrocodone/Acetaminophen ([place] 5-325 Tablet) 1 Each Tablet, 1 EACH PO Q4H, # 20 TAB Prov:MARISA COLLADO MD 02/04/17 Reported Medications Omeprazole* (Omeprazole*) 20 Mg Capsule., 20 MG PO DAILY, #30 CAP 01/29/17 Discontinued Scripts Azithromycin* (Zithromax*) 250 Mg Tablet, 250 MG PO .CHRISTIANNE DIRECTED, #6 TAB TAKE 500 MG (2 TABS) THE FIRST DAY THEN 250 MG (1 TAB) DAYS 2-5 Prov:YOKO JAY PA-C 01/09/17 Metoclopramide Hcl* (Metoclopramide Hcl*) 10 Mg Tablet, 10 MG PO Q6H Y for NAUSEA AND OR VOMITING, #30 TAB Prov:WALKER MCKINNON MD 04/29/16 Omeprazole* (Omeprazole*) 20 Mg Capsule.dr, 20 MG PO DAILY, #90 CAP Prov:WALKER MCKINNON MD 04/29/16 Follow-up Plan follow up with PCP and oncology MARISA COLLADO MD Feb 04, 2017 14:05
--- NOTE | 2017-02-04 17:05 | PN ---
DATE: 02/04/2017 REASON FOR FOLLOWUP: Respiratory failure. SUBJECTIVE: Patient doing well with minimal drainage out of pigtail catheter, scheduled to be disch arged today. I will remove the pigtail catheter prior to drainage. PHYSICAL EXAMINATION: VITAL SIGNS: Temperature 98, pulse 86, blood pressure 99/57, O2 saturation 99% on 2 L nasal cannula . NECK: Supple. No JVD or lymphadenopathy. CARDIAC: S1, S2, no added sounds or murmurs. CHEST: Diminished air entry bilaterally. ABDOMEN: Soft, nontender. No guarding or rebound. EXTREMITIES: No cyanosis, clubbing, edema noted. NEUROLOGIC: Grossly intact. No focal deficits. LABORATORY DATA: Pending as of today. IMPRESSION AND PLAN: History of endometrial adenocarcinoma, status post chemotherapy with new left pleural effusion that is negative for malignancy from the cytology. Pleural fluid seems to have cynthia ined adequately with pigtail catheter. I will have this removed prior to discharge. The patient to follow up with hematology/oncology as an outpatient. If pleural fluid does reaccumulate, she will require video-assisted thorascopic pleural biopsy and then subsequent pleurodesis. Dictated By: JEROME DUGAN MD SV/KOURTNEY Conf#: [id number] DID#: [id number]
--- NOTE | 2017-02-04 17:42 | RADRPT ---
PROCEDURE: Fluoroscopic guided catheter removal. CLINICAL INDICATION: Left chest catheter no longer required. TECHNIQUE: Prior to the procedure, informed consent was obtained. Risks including bleeding and inf ection, were explained to the patient. The patient understood and was willing to proceed. A procedur al pause was performed. The patient's name, date of , and procedure to be performed were [facility] ed. The skin sutures were removed. The existing drainage catheter in the left chest was cut and remove d with fluoroscopic guidance. A postprocedure image was obtained. A total of 0.1 minutes of fluoroscopy time was used. COMPARISON: Chest x-ray done earlier the same day FINDINGS: The initial image demonstrates the left chest tube in position in the lower left pleural space. The postprocedure image demonstrates complete removal of the catheter. IMPRESSION: 1. Fluoroscopic guided removal of left pleural space drainage catheter. RPTAT: QQ .Dominic Wilson MD, MD Date Time Electronically viewed and signed by .Dominic Wilson MD, on 02/04/2017 17:41 .R/
== END 2017-02-04 19:40 | disposition home or self-care (01) | DRG 186 ==
LOC: E/R 11:25 → MS4 13:19
PROVIDERS: ADMIT Hospitalist; ATTEND Hospitalist
PROC: 0W9B3ZZ Drainage of Left Pleural Cavity, Percutaneous Approach (ICD-10-PCS; 2017-01-31)
PROC: 0W9B30Z Drainage of Left Pleural Cavity with Drainage Device, Percutaneous Approach (ICD-10-PCS; principal; 2017-02-01)
PROC: 0BPQX0Z Removal of Drainage Device from Pleura, External Approach (ICD-10-PCS; 2017-02-04)
DX: J90 Pleural effusion, not elsewhere classified (principal); J96.91 Respiratory failure, unspecified with hypoxia; C78.6 Secondary malignant neoplasm of retroperitoneum and peritoneum; J98.11 Atelectasis; Z90.722 Acquired absence of ovaries, bilateral; D63.0 Anemia in neoplastic disease; Z90.79 Acquired absence of other genital organ(s); Z90.710 Acquired absence of both cervix and uterus; Z92.21 Personal history of antineoplastic chemotherapy; Z85.42 Personal history of malignant neoplasm of other parts of uterus
CPT/HCPCS: 32555; 36415; 36589; 71010; 71275; 74177; 75989; 76942; 80048; 80053; 82042; 82550; 82553; 83605; 83615; 83735; 83880; 84100; 84157; 84484; 85025; 85610; 85730; 86304; 87040; 87070; 87102; 87116; 88104; 88305; 88313; 89050; 93005; 94644; 96374; 96375; J2270; J2543; J3370; J3480; Q9967

== ENCOUNTER 2017-02-18 08:00 | Emergency (ER) | payer MEDICARE, OTHER ==
[~2017-02-18] VITALS: Ht 149.9 cm; Wt 51.0 kg
[~2017-02-18 08:00] MED LIST changes: -AZIT250T94 PO; +HYDR-906 PO; -METO10TA96 PO
[2017-02-18 08:03] VITALS: Ht 149.9 cm; Wt 51.0 kg
[2017-02-18] MEDS ORDERED: SOD CHLORIDE 0.9% 500 ML IV ONE (10:00)
--- NOTE | 2017-02-18 10:11 | ERD ---
ER Documentation Chief Complaint Date/Time DATE: 02/18/17 TIME: 10:05 Chief Complaint painful urination x 2 weeks ; fever x 2 days HPI 66-year-old female complaining of painful urination and urinary frequency 2 weeks. She has right flank pain as well. Patient reports fever and chills last 2 days, T-max 103.6. She took [place] for pain, last dose was 6 hours ago. Her urine this morning was cloudy and pink/orange in color. Patient was recently hospitalized for pleural effusion, discharge home on 02/04/2017. She did not receive [place] catheter while in the hospital. Patient also has stage IV uterine cancer status post total hysterectomy, last chemotherapy was October 2016. Denies shortness of breath. Denies vomiting or diarrhea. 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 ROS All systems reviewed and are negative except as per history of present illness. Medications Home Meds Active Scripts Phenazopyridine Hcl* (Pyridium*) 100 Mg Tab, 100 MG PO TID Y for URINARY PAIN, # 6 TAB Prov:JUSTIN SWANSON NP 02/18/17 Ciprofloxacin Hcl* (Ciprofloxacin Hcl*) 500 Mg Tablet, 500 MG PO BID for 10 Days , TAB Prov:JUSTIN SWANSON. [place] 02/18/17 Hydrocodone/Acetaminophen ([place] 5-325 Tablet) 1 Each Tablet, 1 EACH PO Q4H, # 20 TAB Prov:MARISA COLLADO MD 02/04/17 Reported Medications Omeprazole* (Omeprazole*) 20 Mg Capsule.dr, 20 MG PO DAILY, #30 CAP 01/29/17 Allergies Allergies: Coded Allergies: No Known Allergy (Unverified , 01/29/17) PMhx/Soc History of Surgery: Yes (HYSTERECTOMY, APPENDECTOMY ) Anesthesia Reaction: No Hx Neurological Disorder: No Hx Respiratory Disorders: No Hx Cardiac Disorders: No Hx Psychiatric Problems: No Hx Alcohol Use: No Hx Substance Use: No Hx Tobacco Use: No Physical Exam Vitals Vital Signs Date Time Temp Pulse Resp B/P Pulse Ox O2 Delivery O2 Flow Rate FiO2 02/18/17 13:57 103.7 125 17 153/59 96 Room Air 02/18/17 13:20 98.6 81 18 103/58 100 Room Air 02/18/17 12:55 100.0 107 23 97/57 100 Room Air 02/18/17 12:33 62 18 122/68 98 Room Air 02/18/17 08:03 99.3 112 18 101/51 98 Physical Exam General impression: Frail appearing. Alert, oriented, in no acute distress Head: Normocephalic, atraumatic. Respiration: Normal respiratory effort. Diminished lung sounds on the left. No wheezes, rales or rhonchi. Cardiovascular: Regular rate and rhythm. No murmurs or extra heart sounds. Abdomen: Abdomen normal to inspection. Suprapubic tenderness, no other tenderness. No masses or organomegaly. Bowel sounds normal. Back: Normal to inspection. No midline spine tenderness. Right CVA tenderness. Neuro: Mental status normal, speech normal. [employer] SECURITY CONSULTANT grossly intact. Skin: Normal turgor. No rash or lesions. Psych: Normal mood and affect. Result Diagram: 02/18/17 1040 02/18/17 1040 Results 24 hrs Laboratory Tests Test 02/18/17 10:21 02/18/17 10:40 02/18/17 14:26 Urine Bacteria MODERATE Urine Bilirubin NEGATIVE Urine Clarity CLOUDY Urine Color LT. YELLOW Urine Glucose NEGATIVE% Urine Hemoglobin TRACE Urine Ketones NEGATIVE Urine Leukocyte Esterase 3+ Urine Microscopic RBC NONE SEEN/HPF Urine Microscopic WBC >200/HPF Urine Nitrite NEGATIVE Urine Specific [place] 1.010 Urine Squamous Epithelial Cells OCCASIONAL Urine Total Protein 1+ Urine Urobilinogen 0.2 E.U./dL Urine pH 6.0 Activated Partial Thromboplast Time 47.4Sec Alanine Aminotransferase (ALT/SGPT) 51IU/L Albumin 3.7g/dl Albumin/Globulin Ratio 1.00 Alkaline Phosphatase 152IU/L Anion Gap 17 Aspartate Amino Transf (AST/SGOT) 33IU/L B-Type Natriuretic Peptide 2440PG/ML Basophils # 0.010^3/ul Basophils % 0.2% Blood Urea Nitrogen 15mg/dl Calcium Level 8.9mg/dl Carbon Dioxide Level 25mmol/L Chloride Level 100mmol/L Creatinine 0.74mg/dl Direct Bilirubin 0.00mg/dl Eosinophils # 0.010^3/ul Eosinophils % 0.1% Globulin 3.70g/dl Glucose Level 113mg/dl Hematocrit 30.9% Hemoglobin 10.3g/dl INR International Normalized Ratio 1.32 Indirect Bilirubin 0.8mg/dl Lactic Acid Level 0.8mmol/L 1.1mmol/L Lymphocytes # 1.810^3/ul Lymphocytes % 13.8% Mean Corpuscular Hemoglobin 27.1pg Mean Corpuscular Hemoglobin Concent 33.3g/dl Mean Corpuscular Volume 81.3fl Mean Platelet Volume 10.4fl Monocytes # 0.810^3/ul Monocytes % 5.8% Neutrophils # 10.410^3/ul Neutrophils % 79.7% Nucleated Red Blood Cells # 0.010^3/ul Nucleated Red Blood Cells % 0.0/100WBC Platelet Count 86107^3/UL Potassium Level 3.7mmol/L Prothrombin Time 16.5Sec Prothrombin Time Ratio 1.3 Red Blood Count 3.8010^6/ul Red Cell Distribution Width 14.6% Sodium Level 138mmol/L Total Bilirubin 0.8mg/dl Total Protein 7.4g/dl Troponin I < 0.012ng/ml White Blood Count 13.010^3/ul Current Medications Medications (Trade) Dose Ordered Sig/Michael Route PRN Reason Start Time Stop Time Status Last Admin Dose Admin Sodium Chloride 500 ml @ 500 mls/hr Q1H ONCE IV 02/18/17 10:00 02/18/17 10:59 DC 02/18/17 10:09 Ceftriaxone Sodium (Rocephin) 50 ml @ 100 mls/hr ONCE ONCE IVPB 02/18/17 12:00 02/18/17 12:29 DC 02/18/17 11:55 Acetaminophen (Tylenol Tab) 650 mg ONCE ONCE PO 02/18/17 13:30 02/18/17 13:31 DC 02/18/17 13:06 Ibuprofen (Motrin) 600 mg ONCE ONCE PO 02/18/17 14:30 02/18/17 14:31 DC 02/18/17 14:31 Ibuprofen (Motrin) 600 mg ONCE ONCE PO 02/18/17 15:00 02/18/17 15:01 DC Procedures/MDM 66-year-old female presented ED was dysuria, fever, and tachycardia. Patient was evaluated for sepsis. She has a slight elevated WBC at 13.0, and slight anemia with hemoglobin 10.3, hematocrit 30.9. Her CMP is unremarkable, lactate 0.8. UA showed 3+ leukocyte , negative nitrite, greater than 200 WBC, and moderate bacteria. Patient symptoms are inconsistent with pyelonephritis. Patient was recently hospitalized for pleural effusion. She was initially given 500 mL of normal saline bolus. Repeat chest x-ray today showed left basilar pleural/parenchymal disease, improved compared to 02/04/2017. BNP today is 2440. Patient does not have any shortness of breath. Her oxygen saturation is 100% on room air. EKG: Normal sinus rhythm, normal axis. No ST segment elevation or depression. No ectopic beats. No QT prolongation. No other EKG abnormalities. EKG read by Dr. Kat. Patient was given Rocephin 1 g IV in the ED. Patient's fever returned in the ED. Tylenol was given initially, followed by ibuprofen. Repeat lactate after 4 hours was 1.1. Patient does not have sepsis. I consulted was Dr. Lim regarding the patient. Dr. Lim also reexamine the patient. He feels that her symptoms fever is related to pyelonephritis. Her elevated BNP is related to pleural effusion secondary to cancer. Dr. Lim suggests that patient is well to be discharged home for outpatient management. Patient appears well, stable for discharge and outpatient management. Medical decision making shared with patient and family. Education provided to patient and family. Patient and family expressed understanding of the plan. Medications on discharge: Cipro, Pyridium. Follow-up: Primary care provider in 2-3 days or return to ED if worse. Departure Diagnosis: Primary Impression: Pyelonephritis Condition: Stable JUSTIN SWANSON NP Feb 18, 2017 10:11
--- NOTE | 2017-02-18 10:25 | RADRPT ---
PROCEDURE: Chest Radiograph. CLINICAL INDICATION: Sepsis TECHNIQUE: Single frontal chest radiograph. COMPARISON: Chest radiograph 02/04/2017 FINDINGS: A right chest wall port infusion catheter remains in place. Heart size is within normal limits. At herosclerotic calcifications are present There has been interval removal of a left pleural pigtail c atheter. The right lung is clear. There is no pneumothorax. There is patchy left basilar pleural and parenchymal disease likely representing a small effusion with adjacent atelectasis or infiltrat e. The appearance is significantly improved when compared to 02/04/2017. The bones are intact. IMPRESSION: 1. Left basilar pleural / parenchymal disease, improved compared to 02/04/2017. 2. Atherosclerotic vascular disease. RPTAT: KK .Sav Baires MD, Date Time Electronically viewed and signed by .Sav Baires MD, MD on 02/18/2017 10:25 .B/
[2017-02-18 10:56] LABS: ADD SCAN DIFF NO
[2017-02-18 11:10] LABS: ADD UMIC YES; URINE BILIRUBIN (Dip) NEGATIVE (NEGATIVE); URINE BLOOD (Dip) TRACE (NEGATIVE); URINE COLOR LT. YELLOW (YELLOW); URINE GLUCOSE (Dip) NEGATIVE (NEGATIVE); URINE KETONES (Dip) NEGATIVE (NEGATIVE); URINE LEUKOCYTE ESTERASE (Dip) 3+ (NEGATIVE); URINE NITRITE (Dip) NEGATIVE (NEGATIVE); URINE TOTAL PROTEIN (Dip) 1+ (NEGATIVE); URINE UROBILINOGEN (Dip) 0.2 E.U./dL (0.1-1.0)
[2017-02-18 11:18] LABS: URINE RBCS NONE SEEN /HPF (0)
[2017-02-18 11:19] LABS: BACTERIA,URINE MODERATE; SQUAMOUS EPITHELIAL CELL,UR OCCASIONAL
[2017-02-18 11:22] LABS: BASOPHILS % 0.2 % (0.0-2.0); EOSINOPHILS % 0.1 % (0.0-7.0); HEMATOCRIT 30.9 % (37.0-47.0); HEMOGLOBIN 10.3 g/dl (12.0-16.0); LYMPHOCYTES # 1.8 10^3/ul (0.8-2.9); LYMPHOCYTES % 13.8 % (15.0-51.0); MEAN CORPUSCULAR HEMOGLOBIN 27.1 pg (29.0-33.0); MEAN CORPUSCULAR HGB CONC 33.3 g/dl (32.0-37.0); MEAN CORPUSCULAR VOLUME 81.3 fl (82.0-101.0); MEAN PLATELET VOLUME 10.4 fl (7.4-10.4); MONOCYTE # 0.8 10^3/ul (0.3-0.9); MONOCYTES % 5.8 % (0.0-11.0); NEUTROPHIL # 10.4 10^3/ul (1.6-7.5); NEUTROPHILS % 79.7 % (39.0-77.0); PLATELET COUNT 238 10^3/UL (140-415); RED CELL DISTRIBUTION WIDTH 14.6 % (11.5-14.5)
[2017-02-18 11:23] LABS: ALBUMIN 3.7 g/dl (3.3-4.9)
[2017-02-18 11:24] LABS: POTASSIUM 3.7 mmol/L (3.5-5.1)
[2017-02-18 11:26] LABS: BILIRUBIN,INDIRECT 0.8 mg/dl (0-1.1); BILIRUBIN,TOTAL 0.8 mg/dl (0.2-1.3); CREATININE 0.74 mg/dl (0.44-1.00)
[2017-02-18 11:27] LABS: CALCIUM 8.9 mg/dl (8.4-10.2); TOTAL PROTEIN 7.4 g/dl (6.1-8.1)
[2017-02-18] MEDS ORDERED: CEFTRIAXONE 1 GM/50 ML (PMX) 50 ML IVPB ONE (12:00)
[2017-02-18 12:05] LABS: INR 1.32; PROTIME 16.5 Sec (12.2-14.2); PT RATIO 1.3
[2017-02-18 12:06] LABS: PARTIAL THROMBOPLASTIN TIME 47.4 Sec (25.0-35.0)
[2017-02-18] MEDS ORDERED: CIPR500T4 PO (12:08)
[2017-02-18] MEDS ORDERED: PHEN-537 PO (12:08)
[2017-02-18 12:16] LABS: B-TYPE NATRIURETIC PEPTIDE 2440 PG/ML (0-125)
[2017-02-18 12:20] LABS: TROPONIN-I < 0.012 ng/ml (0.00-0.12)
[2017-02-18] MEDS ORDERED: ACETAMINOPHEN 325 MG TAB PO ONE (13:30)
[2017-02-18] MEDS ORDERED: IBUPROFEN 600 MG TAB PO ONE ×2 (14:30→15:00)
--- NOTE | 2017-02-18 14:59 | QN ---
Documentation Comment I was asked by the RON Vora to evaluate patient. She is a 66-year-old female, with history of uterine cancer on chemotherapy, with history of left pleural effusion status post thoracentesis. She presents with painful urination and left lower back pain for the last few days and fever today. He denies chest pain, dyspnea, pleuritic chest pain, chest pain with exertion or vomiting or diaphoresis, orthopnea, paroxysmal nocturnal dyspnea, abdominal pain. She does not smoke or drink Const: No acute distress. Head: Atraumatic. Eyes: Normal Conjunctiva. ENT: Normal External Ears, Nose and Mouth. Neck: Full range of motion. No meningismus. Resp: Clear to auscultation bilaterally. Cardio: Regular tachycardia Abd: Soft, non distended, normal bowel sounds, left CVA tenderness, no rigidity, rebound tenderness Skin: No petechiae or rashes. Back: No midline or flank tenderness. Ext: No cyanosis, or edema. Neur: Awake and alert. No focal deficit Psych: Normal Mood and Affect. MEDICAL MAKING DECISION: The patient is a 52-year-old female, presenting with acute left pyelonephritis. He was treated with IV fluids, Rocephin IV, Motrin, Tylenol with good response. She is stable for outpatient follow-up. The differential diagnoses considered include but are not limited to, pneumonia, pneumothorax, PE, cholelithiasis, cholecystitis, cystitis, pancreatitis, hepatitis, gastritis, peptic ulcer disease, gastric ulcer, appendicitis, diverticulitis, cholangitis, choledocholithiasis, partial small bowel obstruction. Diagnostic impression: Acute left pyelonephritis Disposition: I discussed the findings with the patient. I advised the patient to follow-up with the primary physician in the morning, sooner if needed and return if any concern. She was discharged with ALMA ROSA Sawyer MD Feb 18, 2017 14:59
[2017-02-18 15:19] VITALS: BP 114/44; PULSE 115; RESP 18; TEMP 101
== END 2017-02-18 15:20 | disposition home or self-care (01) ==
LOC: FTE 08:00
DX: N12 Tubulo-interstitial nephritis, not specified as acute or chronic (principal); R10.9 Unspecified abdominal pain; J90 Pleural effusion, not elsewhere classified
CPT/HCPCS: 36415; 71010; 80053; 81001; 83605; 83880; 84484; 85025; 85610; 85730; 87040; 87086; 93005; 96361; 96365; 99285; J0696; J7040; 81003

== ENCOUNTER → 2017-03-03 | Outpatient (CLI) | payer MEDICARE, OTHER ==
[~2017-03-03] MED LIST changes: +CIPR500T4 PO; +PHEN-537 PO
--- NOTE | 2017-03-03 12:35 | RADRPT ---
PROCEDURE: XR Chest. CLINICAL INDICATION: Cough. TECHNIQUE: Two views. Frontal and lateral. COMPARISON: 02/18/2017. FINDINGS: There is a right internal jugular vein implanted port central venous catheter with the tip in the lo wer superior vena cava. The right lung is clear and there is no right pleural effusion. There is a telectasis at the left lung base and a small left pleural effusion, improved. The left lung is othe rwise clear. The heart size is normal. There is no pneumothorax. IMPRESSION: 1. Improved appearance of left lung base and smaller left pleural effusion. 2. No other change from 02/18/2017. RPTAT: QQ .Dominic Wilson MD, MD Date Time Electronically viewed and signed by .Dominic Wilson MD, on 03/03/2017 12:34 .R/
== END | disposition home or self-care (01) ==
LOC: RAD 11:20
PROVIDERS: ATTEND Internal Medicine
DX: J90 Pleural effusion, not elsewhere classified (principal); R05 Cough
CPT/HCPCS: 71020

== ENCOUNTER 2017-06-28 02:04 | Emergency (ER) | payer MEDICARE, OTHER ==
[~2017-06-28] VITALS: Ht 149.9 cm; Wt 56.0 kg
[2017-06-28 02:10] VITALS: Ht 149.9 cm; Wt 56.0 kg
[2017-06-28] MEDS ORDERED: morphine 4 MG/ML VIAL IV STA (02:32)
[2017-06-28 03:16] LABS: BASOPHILS % 0.5 % (0.0-2.0); EOSINOPHILS # 0.1 10^3/ul (0.0-0.5); EOSINOPHILS % 1.5 % (0.0-7.0); HEMATOCRIT 42.2 % (37.0-47.0); HEMOGLOBIN 13.7 g/dl (12.0-16.0); LYMPHOCYTES # 2.2 10^3/ul (0.8-2.9); LYMPHOCYTES % 36.9 % (15.0-51.0); MEAN CORPUSCULAR HEMOGLOBIN 26.7 pg (29.0-33.0); MEAN CORPUSCULAR HGB CONC 32.5 g/dl (32.0-37.0); MEAN CORPUSCULAR VOLUME 82.1 fl (82.0-101.0); MEAN PLATELET VOLUME 10.2 fl (7.4-10.4); MONOCYTE # 0.4 10^3/ul (0.3-0.9); MONOCYTES % 6.3 % (0.0-11.0); NEUTROPHIL # 3.3 10^3/ul (1.6-7.5); NEUTROPHILS % 54.6 % (39.0-77.0); PLATELET COUNT 192 10^3/UL (140-415); RED BLOOD COUNT 5.14 10^6/ul (4.20-5.40); RED CELL DISTRIBUTION WIDTH 16.2 % (11.5-14.5); WHITE BLOOD COUNT 6.1 10^3/ul (4.8-10.8)
--- NOTE | 2017-06-28 03:18 | RADRPT ---
PROCEDURE: Ultrasound of the abdomen. CLINICAL INDICATION: Right upper quadrant pain. TECHNIQUE: Sonographic images of the abdomen were performed. COMPARISON: No pertinent prior examinations were submitted for comparison. FINDINGS: Liver: The liver is normal in echogencity and size measuring approximately 14.1 cm. The hepatic vei ns and portal veins are patent with appropriate directional flow. No intrahepatic ductal dilatation is seen. Gallbladder: The gallbladder is not distended and has normal wall thickness. No pericholecystic flu id or gallstones are visualized. The common duct measures 3.5 mm. A small amount of sludge is noted in the gallbladder. Pancreas: There is limited evaluation of the pancreatic body and tail. The visualized portions of the pancreas are unremarkable. Kidneys: The right kidney measures 10.9 cm. There is normal corticomedullary differentiation. Ther e is no evidence of renal calculus or hydronephrosis. IVC: The visualized portion of the inferior vena cava is unremarkable. Aorta: Normal in size. Free fluid: None. IMPRESSION: Unremarkable right upper quadrant of sound. RPTAT: HIKT .Tre Li MD, Date Time Electronically viewed and signed by .Tre Li MD, on 06/28/2017 03:17 .T/
[2017-06-28 03:37] LABS: ADD UMIC NO; UR ASCORBIC ACID NEGATIVE (NEGATIVE); UR BILIRUBIN (Dip) NEGATIVE (NEGATIVE); UR BLOOD (Dip) NEGATIVE (NEGATIVE); UR CLARITY CLEAR (CLEAR); UR COLOR STRAW (YELLOW); UR GLUCOSE (Dip) NEGATIVE (NEGATIVE); UR KETONES (Dip) NEGATIVE (NEGATIVE); UR LEUKOCYTE ESTERASE (Dip) NEGATIVE Leu/ul (NEGATIVE); UR NITRITE (Dip) NEGATIVE (NEGATIVE); UR SPECIFIC GRAVITY (Dip) 1.006 (1.003-1.030); UR TOTAL PROTEIN (Dip) NEGATIVE (NEGATIVE); UR UROBILINOGEN (Dip) NEGATIVE (NEGATIVE)
[2017-06-28 03:40] LABS: ALBUMIN 4.7 g/dl (3.3-4.9); ALBUMIN/GLOBULIN RATIO 1.3; BILIRUBIN,INDIRECT 0.3 mg/dl (0-1.1); BILIRUBIN,TOTAL 0.3 mg/dl (0.2-1.3); CALCIUM 9.7 mg/dl (8.4-10.2); CREATININE 0.84 mg/dl (0.44-1.00); POTASSIUM 4.3 mmol/L (3.5-5.1); TOTAL PROTEIN 8.3 g/dl (6.1-8.1)
--- NOTE | 2017-06-28 04:27 | RADRPT ---
PROCEDURE: Chest. CLINICAL INDICATION: Chest pain. TECHNIQUE: Single frontal view of the chest was obtained. COMPARISON: 03/03/2017. FINDINGS: There is a right-sided belén-catheter extending to the SVC/RA junction. The cardiac silhouette is m agnified. The aortic arch is unremarkable. There is no focal consolidation, vascular congestion or pleural effusion. There is mild left basilar atelectasis. There is no pneumothorax. IMPRESSION: Mild left basilar atelectasis. .Zander Cervantes MD, MD Date Time Electronically viewed and signed by .Zander Cervantes MD, on 06/28/2017 04:26 .T/
--- NOTE | 2017-06-28 04:31 | ERD ---
ER Documentation Chief Complaint Date/Time DATE: 06/28/17 TIME: 04:29 Chief Complaint right upper abd pain x 3 days. hx of uterine ca HPI This is a 66-year-old female with a history of stage IV uterine carcinoma who presents to the emergency room for evaluation of abdominal pain. This patient states her abdominal pain is in the right portion of her abdomen is described as achy pain with no radiation associated with mild nausea but no vomiting. The patient normally takes oxycodone for pain however she ran out. The patient came to the ER today for evaluation. She is denying any chest pain or palpitations or shortness of breath at this time. ROS All systems reviewed and are negative except as per history of present illness. Medications Home Meds Active Scripts Phenazopyridine Hcl* (Pyridium*) 100 Mg Tab, 100 MG PO TID Y for URINARY PAIN, # 6 TAB Prov:JUSTIN SWANSON NP 02/18/17 Ciprofloxacin Hcl* (Ciprofloxacin Hcl*) 500 Mg Tablet, 500 MG PO BID for 10 Days , TAB Prov:JUSTIN SWANSON NP 02/18/17 Hydrocodone/Acetaminophen ([place] 5-325 Tablet) 1 Each Tablet, 1 EACH PO Q4H, # 20 TAB Prov:MARISA COLLADO MD 02/04/17 Reported Medications Omeprazole* (Omeprazole*) 20 Mg Capsule., 20 MG PO DAILY, #30 CAP 01/29/17 Allergies Allergies: Coded Allergies: No Known Allergy (Unverified , 06/28/17) PMhx/Soc History of Surgery: Yes (HYSTERECTOMY, APPENDECTOMY ) Anesthesia Reaction: No Hx Neurological Disorder: No Hx Respiratory Disorders: No Hx Cardiac Disorders: No Hx Psychiatric Problems: No Hx Miscellaneous Medical Probl: Yes (UTERINE CANCER) Hx Alcohol Use: No Hx Substance Use: No Hx Tobacco Use: No Smoking Status: Never smoker Physical Exam Vitals Vital Signs Date Time Temp Pulse Resp B/P Pulse Ox O2 Delivery O2 Flow Rate FiO2 06/28/17 02:10 98.3 75 20 135/61 99 Physical Exam INITIAL VITAL SIGNS: Reviewed by me GENERAL: The patient is well developed and appropriate for usual state of health in no apparent distress HEENT: Pupils equal, round, and reactive to light. EOMI. There is no scleral icterus. NECK: C-spine is soft and supple, there is no meningismus. There is no cervical lymphadenopathy. LUNGS: Clear to auscultation bilaterally. There are no rales, wheezes or rhonchi. HEART: Regular rate and rhythm, no murmurs, clicks, rubs or gallops. ABDOMEN: Subcutaneous port and right upper quadrant, soft, non-tender, non- distended. There are bowel sounds in all four quadrants. No rebound or guarding. EXTREMITIES: There is no peripheral cyanosis or edema. No focal swelling or erythema. NEUROLOGICAL: The patient moves all four extremities with 5/5 strength. Cranial nerves II - XII are intact. Normal gait. Alert and oriented SKIN: There is no apparent rash or petechiae. HEME/LYMPHATIC: There is no evidence of excessive bruising or lymphedema. PSYCHIATRIC: The patient does not appear anxious or depressed. Result Diagram: 06/28/17 0245 06/28/17 0245 Results 24 hrs Laboratory Tests Test 06/28/17 02:45 06/28/17 02:52 White Blood Count 6.110^3/ul Red Blood Count 5.1410^6/ul Hemoglobin 13.7g/dl Hematocrit 42.2% Mean Corpuscular Volume 82.1fl Mean Corpuscular Hemoglobin 26.7pg Mean Corpuscular Hemoglobin Concent 32.5g/dl Red Cell Distribution Width 16.2% Platelet Count 43189^3/UL Mean Platelet Volume 10.2fl Neutrophils % 54.6% Lymphocytes % 36.9% Monocytes % 6.3% Eosinophils % 1.5% Basophils % 0.5% Nucleated Red Blood Cells % 0.0/100WBC Neutrophils # 3.310^3/ul Lymphocytes # 2.210^3/ul Monocytes # 0.410^3/ul Eosinophils # 0.110^3/ul Basophils # 0.010^3/ul Nucleated Red Blood Cells # 0.010^3/ul Sodium Level 147mmol/L Potassium Level 4.3mmol/L Chloride Level 105mmol/L Carbon Dioxide Level 25mmol/L Anion Gap 21 Blood Urea Nitrogen 15mg/dl Creatinine 0.84mg/dl Glucose Level 102mg/dl Calcium Level 9.7mg/dl Total Bilirubin 0.3mg/dl Direct Bilirubin 0.00mg/dl Indirect Bilirubin 0.3mg/dl Aspartate Amino Transf (AST/SGOT) 31IU/L Alanine Aminotransferase (ALT/SGPT) 36IU/L Alkaline Phosphatase 111IU/L Total Protein 8.3g/dl Albumin 4.7g/dl Globulin 3.60g/dl Albumin/Globulin Ratio 1.30 Lipase 63U/L Urine Color STRAW Urine Clarity CLEAR Urine pH 6.0 Urine Specific [place] 1.006 Urine Ketones NEGATIVEmg/dL Urine Nitrite NEGATIVEmg/dL Urine Bilirubin NEGATIVEmg/dL Urine Urobilinogen NEGATIVEmg/dL Urine Leukocyte Esterase NEGATIVELeu/ul Urine Hemoglobin NEGATIVEmg/dL Urine Glucose NEGATIVEmg/dL Urine Total Protein NEGATIVEmg/dl Current Medications Medications (Trade) Dose Ordered Sig/Michael Route PRN Reason Start Time Stop Time Status Last Admin Dose Admin Morphine Sulfate (morphine) 4 mg ONCE STAT IV 06/28/17 02:32 06/28/17 02:34 DC 06/28/17 02:46 Procedures/MDM Ultrasound gallbladder: No cholecystitis Chest X-ray 1V Interpreted by me: Soft Tissue: No acute abnormalities Bones: No acute abnormalities Mediastinum/Cardiac Silhouette/Lungs: [No acute abnormalities] EKG: Rate/Rhythm: [Normal Sinus Rhythm] QRS, ST, T-waves: [No changes consistent w/ acute ischemia] Impression: [No evidence of ischemia or arrhythmia] This 66-year-old female presents to the emergency room for evaluation of abdominal pain. When I evaluated this patient she had mild epigastric tenderness to palpation. Ultrasound gallbladder is within normal limits. Chest x-ray does reveal left lobe atelectasis however no signs of pneumonia. This patient is not hypoxic, not tachycardic. My suspicion for pulmonary and was not is low at this time. This patient was given morphine in the emergency room and a pulmonary evaluation she states she is feeling better at this time. This patient will be discharged home with a prescription for Percocet No. 10. I advised her she can return to the ER anytime for evaluation and she verbalized understanding. Differential diagnoses entertained was broad with potential high acuity. Patient has been evaluated for appendicitis, cholecystitis, and other high risk medical and surgical causes of abdominal pain. Ultimately the patient's evaluation is nondiagnostic. Based on the patient's lack of risk factors, as well as the patient's clinical, laboratory, and imaging data, the patient appears to be low risk for these high risk causes of abdominal pain. Departure Diagnosis: Primary Impression: Abdominal pain Condition: Stable CATRINA HARMON DO Jun 28, 2017 04:31
[2017-06-28] MEDS ORDERED: OXYC-279 PO (04:32)
[2017-06-28 04:39] VITALS: BP 108/81; PULSE 77; RESP 20; TEMP 98.3
== END 2017-06-28 04:53 | disposition home or self-care (01) ==
LOC: E/R 02:04
DX: R10.11 Right upper quadrant pain (principal); Z85.41 Personal history of malignant neoplasm of cervix uteri
CPT/HCPCS: 71010; 76705; 80053; 81003; 83690; 85025; J2270; 36415; 96374

== ENCOUNTER 2018-02-05 16:05 | Emergency (ER) | END 2018-02-05 20:25 | disposition home or self-care (01) ==

== ENCOUNTER 2018-06-05 12:11 | Emergency (ER) | END 2018-06-05 17:32 | disposition home or self-care (01) ==